=== PATIENT | male | born 1970 | race African-American/Black ===

== ENCOUNTER 2016-05-16 17:56 | Inpatient (IN) ==
[2016-05-16 19:13] LABS: Basophils # 0.1 K/mcL (0.0-0.2); Basophils % 0.5 %; Eosinophils # 0.3 K/mcL (0.0-0.6); Eosinophils % 2.4 %; Hematocrit 41.5 % (37.5-50.1); Hemoglobin 13.9 g/dL (12.9-16.9); Immature Granulocytes % 0.4 % (0-4); Lymphocytes # 3.6 K/mcL (0.6-4.6); Lymphocytes % 27.1 %; Mean Corpuscular HGB Conc 33.5 g/dL (31.6-35.5); Mean Corpuscular Hemoglobin 27.4 pg (28.0-33.3); Mean Corpuscular Volume 81.7 fL (83.0-100.0); Mean Platelet Volume 11.1 fL (9.4-12.4); Monocytes % 7.2 %; Neutrophils # 8.2 K/mcL (1.6-8.9); Platelet Count 175 K/mcL (140-400); Red Blood Count 5.08 M/mcL (4.19-5.50); Red Cell Distribution Width 13.5 % (11.5-14.5); Segmented Neutrophils % 62.4 %
[2016-05-16 19:20] LABS: Alanine Aminotransferase 11 Units/L (0-55); Albumin 3.9 g/dL (3.5-5.0); Albumin/Globulin Ratio 0.9 (1.1-2.2); Alkaline Phosphatase 97 Units/L (38-126); Amylase 159 Units/L (25-125); Aspartate Amino Transferase 14 Units/L (5-34); BUN/Creatinine Ratio 9 (6-26); Bilirubin,Direct 0.3 mg/dL (0.0-0.5); Bilirubin,Indirect 0.3 mg/dL (0.0-1.2); Bilirubin,Total 0.6 mg/dL (0.2-1.2); Blood Urea Nitrogen 8 mg/dL (8-26); Calcium 9.7 mg/dL (8.6-10.8); Carbon Dioxide 23 mEq/L (19-29); Chloride 101 mEq/L (98-109); Globulin 4.4 g/dL (2.4-3.5); Glucose 98 mg/dL (70-99); Lipase 929 Units/L (8-78); Osmolality,Calculated 280 (280-300); Potassium 4.1 mEq/L (3.5-4.5); Sodium 136 mEq/L (136-145); Total Protein 8.3 g/dL (6.0-8.3); eGFR For African Americans > 60 (> 60); eGFR For Non-African Americans > 60 (> 60)
[2016-05-16] MEDS ORDERED: Ondansetron 4 MG/2 ML VIAL IV ONE (19:28)
[2016-05-16] MEDS ORDERED: 0.9 % Sodium Chloride 1,000 ML IVC ONE ×3 (19:28→21:57)
[2016-05-16] MEDS ORDERED: *HR* HYDROmorphone (PF) 1 MG/ML SYRINGE IV ONE (19:28)
--- NOTE | 2016-05-16 19:40 | Emergency Department Note ---
Disposition Clinical Impression: Pancreatitis Qualifiers: Chronicity: acute Pancreatitis type: unspecified pancreatitis type Acute pancreatitis complication: no infection or necrosis Qualified Code(s): K85.90 - Acute pancreatitis without necrosis or infection, unspecified Disposition: Admitted As Inpatient Referrals: Anaid Giles CNP [Primary Care Provider] - Forms: ED Satisfaction Letter, Work/School Release Abdominal Pain HPI - General Chief Complaint: ED Abdominal Pain Stated Complaint: back pain no bm x4 days! Time Seen by Provider: 05/16/16 19:01 Source: patient Mode of arrival: ambulatory Nursing Notes Reviewed: Yes Vital Signs Reviewed: Yes - History of Present Illness Pt Subjective Complaint: abdominal pain Onset (ago): day(s) (4) Consistency: constant Location: epigastric Pain Severity: severe Pain Scale: 10 Quality: stabbing, burning Radiation: none Migration to: no migration Improves with: nothing Worsens with: nothing Associated symptoms: Reports: nausea, vomiting Treatments prior to arrival: none - Related Data Home Medications Medication Instructions Recorded Confirmed Atorvastatin [Lipitor] 10 mg PO DAILY 08/01/15 09/08/15 Lisinopril [Zestril] 10 mg PO DAILY 08/01/15 09/08/15 Omeprazole [PriLOSEC] 20 mg PO DAILY 08/01/15 09/08/15 Folic Acid 1 mg PO DAILY 05/16/16 05/16/16 Propranolol HCl 40 mg PO BID 05/16/16 05/16/16 TraZODone 50 mg PO HS PRN 05/16/16 05/16/16 Allergies Allergy/AdvReac Type Severity Reaction Status Date / Time No Known Allergies Allergy Verified 05/16/16 18:14 All systems ED: reviewed and negative except as stated. Constitutional: Denies: fever, chills Gastrointestinal: Reports: abdominal pain, nausea, vomiting Abdominal Pain PMH - Past Medical History Medical history: Reports: GERD, hyperlipidemia, hypertension, other Male Surgical History: Reports: orthopedic, other Psychiatric history: Reports: no psych history - Social History Smoking status: Current every day smoker Alcohol use: Reports: none Drug use: Reports: none, marijuana Physical Exam - General Limitations: no limitations General appearance: alert - Head Head exam: atraumatic, normocephalic, normal inspection - Eye Eye exam: Present: normal appearance, PERRL, EOMI - Expanded Eye Exam Pupils: Left: reactive - ENT ENT exam: normal exam, normal oropharynx, mucous membranes moist - Expanded ENT Exam External ear exam: Present: normal external inspection Mouth exam: Present: normal external inspection Teeth exam: Present: normal inspection Throat exam: Present: normal inspection - Neck Neck exam: Present: normal inspection, full ROM, trachea midline - Chest Chest inspection: Present: normal inspection, symmetric chest wall rise - Respiratory Respiratory exam: Present: normal lung sounds bilaterally - Cardiovascular Cardiovascular exam: Present: regular rate, normal rhythm, normal heart sounds - Abdominal Exam Abdominal exam: Present: soft, guarding, normal bowel sounds. Absent: rebound Abdominal tenderness: Present: epigastrium, moderate - Extremities Exam Extremities exam: Present: normal inspection, full ROM. Absent: tenderness, pedal edema - Expanded Upper Extremity Exam Shoulder exam: Present: normal inspection, full ROM Arm exam: Present: normal inspection, full ROM Elbow exam: Present: normal inspection, full ROM Forearm/Wrist exam: Present: normal inspection, full ROM Hand exam: Present: normal inspection, full ROM Vascular exam: Normal: capillary refill, radial pulse - Expanded Lower Extremity Exam Hip/Pelvis exam: Present: normal inspection, full ROM Upper leg exam: Present: normal inspection, full ROM Knee exam: Present: normal inspection, full ROM Lower leg exam: Present: normal inspection, full ROM Ankle exam: Present: normal inspection, full ROM Foot/toe exam: Present: normal inspection, full ROM Neurovascular/Tendon exam: Absent: motor deficit, sensory deficit, tendon deficit - Back Exam Back exam: Present: normal inspection, full ROM. Absent: tenderness - Neurological Exam Neurological exam: Present: alert, oriented X3 - Expanded Neurological Exam Patient oriented to: Present: person, place, time Coma Scale Eye Opening: Spontaneous Coma Scale Motor Response: Obeys Commands Coma Scale Verbal Response: Oriented Coma Scale Total: 15 - Psychiatric Psychiatric exam: Present: normal affect, normal mood - Skin Skin exam: Present: warm, dry, intact, normal color Course Vital Signs Temperature 98.1 F 05/16/16 18:10 Pulse Rate 98 05/16/16 18:10 Respiratory Rate 16 05/16/16 18:10 Blood Pressure 139/90 05/16/16 18:10 O2 Sat by Pulse Oximetry 98 05/16/16 18:10 Temperature 98.1 F 05/16/16 18:10 Pulse Rate 98 03/08/17 18:10 Respiratory Rate 16 05/16/16 18:10 Blood Pressure 139/90 05/16/16 18:10 O2 Sat by Pulse Oximetry 98 05/16/16 18:10 Oxygen Delivery Oxygen Delivery Room Air Abdominal Pain - Differential Diagnosis Differential Diagnosis: Likely: abdominal pain non-specific, acute appendicitis , constipation, colonic obstruction, pancreatitis - Medical Records Medical records reviewed: Yes I reviewed the patient's medical records. - Lab Data Lab results reviewed: Yes I reviewed the patient's lab results. Result diagrams: 05/16/16 18:56 05/16/16 18:56 Lab Results 05/16/16 05/16/16 Range/Units 18:56 18:56 WBC 13.2 H (4.3-11.1) K/mcL RBC 5.08 (4.19-5.50) M/mcL Hgb 13.9 (12.9-16.9) g/dL Hct 41.5 (37.5-50.1) % MCV 81.7 L (83.0-100.0) fL MCH 27.4 L (28.0-33.3) pg MCHC 33.5 (31.6-35.5) g/dL RDW 13.5 (11.5-14.5) % Plt Count 175 (140-400) K/mcL MPV 11.1 (9.4-12.4) fL Immature Gran % 0.4 (0-4) % Seg Neutrophils % 62.4 % Lymphocytes % 27.1 % Monocytes % 7.2 % Eosinophils % 2.4 % Basophils % 0.5 % Neutrophils # 8.2 (1.6-8.9) K/mcL Lymphocytes # 3.6 (0.6-4.6) K/mcL Monocytes # 1.0 (0.0-1.3) K/mcL Eosinophils # 0.3 (0.0-0.6) K/mcL Basophils # 0.1 (0.0-0.2) K/mcL Sodium 136 (136-145) mEq/L Potassium 4.1 (3.5-4.5) mEq/L Chloride 101 (98-109) mEq/L Carbon Dioxide 23 (19-29) mEq/L BUN 8 (8-26) mg/dL Creatinine 0.94 (0.72-1.25) mg/dL Est GFR ( Amer) > 60 (> 60) Est GFR (Non-Af Amer) > 60 (> 60) BUN/Creatinine Ratio 9 (6-26) Glucose 98 (70-99) mg/dL Calculated Osmolality 280 (280-300) Calcium 9.7 (8.6-10.8) mg/dL Total Bilirubin 0.6 (0.2-1.2) mg/dL Direct Bilirubin 0.3 (0.0-0.5) mg/dL Indirect Bilirubin 0.3 (0.0-1.2) mg/dL AST 14 (5-34) Units/L ALT 11 (0-55) Units/L Alkaline Phosphatase 97 (38-126) Units/L Serum Total Protein 8.3 (6.0-8.3) g/dL Albumin 3.9 (3.5-5.0) g/dL Globulin 4.4 H (2.4-3.5) g/dL Albumin/Globulin Ratio 0.9 L (1.1-2.2) Amylase 159 H (25-125) Units/L Lipase 929 H (8-78) Units/L - Radiology Data Radiology results reviewed: Yes I reviewed the patient's radiology results.
[2016-05-16] MEDS ORDERED: Ondansetron 4 MG/2 ML VIAL IVP PRN (20:32)
[2016-05-16] MEDS ORDERED: Naloxone 0.4 MG/ML INJ IVP PRN (20:32)
--- NOTE | 2016-05-16 20:44 | Internal Med History&Physical ---
<Trinh Pressley - Last Filed: 05/16/16 22:09> Date of Encounter: 05/16/16 Time of Encounter: 20:39 Assessment and Plan (1) Acute pancreatitis Current visit: Yes Status: Acute 1 patient has a past history of alcohol abuse he states his last drink was 12/06 he has been experiencing increased abdominal pain nausea vomiting early satiety since Saturday. Lipase was 929 will make patient nothing by mouth we will administer IV fluids 2 CT scan and to to reveal a multilocular complex cystic area in the pancreas measuring about 2 cm in size-possible pseudocyst formation. Will obtain MRCP- consult GI -consult ordered will need to be called 3 pain medication IV, antiemetics as needed Qualifiers: Pancreatitis type: unspecified pancreatitis type Acute pancreatitis complication: unspecified Qualified Code(s): K85.90 - Acute pancreatitis without necrosis or infection, unspecified (2) Hyperlipidemia Current visit: No Status: Acute 1 we will continue with statins will hold for now due to nothing by mouth Qualifiers: Hyperlipidemia type: unspecified Qualified Code(s): E78.5 - Hyperlipidemia , unspecified (3) Hypertension Current visit: No Status: Acute 1 presently controlled we will hold oral medications for now patient nothing by mouth and resume once patient is eating Qualifiers: Hypertension type: essential hypertension Qualified Code(s): I10 - Essential (primary) hypertension (4) DVT prophylaxis Current visit: No Status: Acute 1 [facility] Internal Medicine - H&P: HPI Chief complaint: abd pain N/V Admitted From: Emergency Dept Plans for Post Hospital Care: Home History of present illness: Mr. Vargas is a 45 year old male with past history of GERD hyperlipidemia hypertension alcoholic pancreatitis. He was seen at this facility in August 2015 for acute pancreatitis at that time it was noted that he had a multilocular complex cystic area and the head of the pancreas measuring roughly about 2 cm in size. He was given antibiotics IV fluids and improved discharged home. Patient has a past history of alcohol abuse he states his last drink was 12/07/2015. He has not experienced any more episodes of pancreatitis since August. According to the patient he had not had a bowel movement since Saturday and Saturday he began to experience abdominal pain she described as sharp rating crosses abdomen into his flanks the pain worsened as the day progressed. He took [id number] laxatives with no relief. Saturday he began to experience early satiety nausea and dry heaves. He has been unable to eat or drink he has not been passing any gas or having a bowel movement . The symptoms continued and he presented to the ER with the above complaints. According to ER notes patient's lab work did reveal white count 13.2 lipase of 929 he was given antiemetics IV Pain medications as well as IV fluids. He is admitted for further workup and evaluation. Presently the patient complains of sharp diffuse abdominal pain that radiates to his flanks however controlled with pain medication. He has tenderness upon palpation to right upper quadrant, No guarding. He is hemodynamically stable at this time. I reviewed this case with Dr. Marie who agrees with plan Past Med Surg Social Fam HX - Past Medical History Medical history: GERD, hyperlipidemia, hypertension, other Psychiatric history: no psych history - Social History Smoking Status: Current every day smoker Smokeless Tobacco Status: No Alcohol use: none Drug use: none, marijuana - Family History Mother Living Status: Still Living Father Living Status: Hx Family Cardiac Disorders: Yes Internal Medicine - H&P: Meds Atorvastatin [Lipitor] 10 mg PO HS 08/01/15 [History] Lisinopril [Zestril] 10 mg PO DAILY 08/01/15 [History] Omeprazole [PriLOSEC] 20 mg PO DAILY 08/01/15 [History] Folic Acid 1 mg PO DAILY 05/16/16 [History] Propranolol HCl 40 mg PO BID 05/16/16 [History] TraZODone 50 mg PO HS PRN 05/16/16 [History] Allergies No Known Allergies Allergy (Verified 05/16/16 18:14) All Systems PM: A 10-system review of systems was performed and is negative for pertinent findings except as documented above in the HPI. - Cardiovascular Cardiovascular ROS IM: no chest pain, no diaphoresis, no dyspnea, no lightheadedness, no palpitations, no syncope - Respiratory Respiratory: no cough, no dyspnea, no wheezing, no excessive phlegm production - Gastrointestinal Gastrointestinal: abdominal pain, constipation, early satiety, nausea, vomiting - Musculoskeletal Musculoskeletal ROS IM: no numbness, no tingling - Integumentary Integumentary IM: no rash, no unusual bruising - Neurological Neurological ROS: no confusion, no convulsions, no focal weakness, no numbness, no tingling, no tremor(s) - Constitutional Vitals: Temp Pulse Resp BP Pulse Ox 98.1 F 85 16 115/84 96 05/16/16 18:10 05/16/16 19:35 05/16/16 19:35 05/16/16 19:35 05/16/16 19:35 General appearance: Present: A&O X 3, answers questions appropriately - Head Head exam: Present: atraumatic, normocephalic - Eye Eye exam: Present: PERRL, conjuntiva pink, sclera anicteric Pupils: Present: PERRL - Neck Neck exam general surgery: Present: supple, trachea midline. Absent: lymphadenopathy - Respiratory Respiratory exam: Present: CTAB. Absent: accessory muscle use, rales, rhonchi, wheezes - Cardiovascular Cardiovascular exam: Present: RRR, +S1, +S2. Absent: diastolic murmur, gallop, rubs, systolic murmur - GI/Abdominal GI/Abdominal exam: Present: hypoactive bowel sounds, soft, tenderness, no peritoneal signs. Absent: distended - Extremities Exam Extremities exam: Present: warm, radial pulses palpable and symetrical. Absent : calf tenderness, cyanotic, pedal edema - Neurological Exam Neurological exam: Present: CN II-XII intact, oriented X3, no focal deficits. Absent: pronater drift, facial droop, speech deficit - Skin Skin exam: Present: dry, intact Internal Med - H&P Results - Labs CBC & Chem 7: 05/16/16 18:56 05/16/16 18:56 <Concetta Castillo R - Last Filed: 05/17/16 07:47> Internal Medicine - H&P: HPI History of present illness: Mr. Vargas is a 45 year old male All Systems PM: A 10-system review of systems was performed and is negative for pertinent findings except as documented above in the HPI. - Constitutional Vitals: Temp Pulse Resp BP Pulse Ox 97.6 F 81 16 129/75 97 05/17/16 07:34 05/17/16 07:34 05/17/16 07:34 05/17/16 07:34 05/17/16 07:34 Internal Med - H&P Results - Labs CBC & Chem 7: 05/17/16 04:37 05/17/16 04:37 Labs: Short CBC 05/17/16 Range/Units 04:37 WBC 10.6 (4.3-11.1) K/mcL Hgb 11.8 L D (12.9-16.9) g/dL Hct 36.2 L (37.5-50.1) % Plt Count 161 (140-400) K/mcL Neutrophils # 5.9 (1.6-8.9) K/mcL BMP 05/17/16 04:37 Sodium 136 Potassium 3.9 Chloride 104 Carbon Dioxide 22 BUN 12 Creatinine 0.88 Glucose 78 Calcium 8.6 Urine 05/17/16 Range/Units 04:04 Urine Color Yellow (Yellow) Urine Clarity Clear (Clear) Urine pH 6.0 (5.0-8.0) pH Units Ur Specific [place] 1.022 (1.010-1.025) Urine Protein Negative (Neg-Trace) mg/dL Urine Glucose (UA) Normal (Normal) mg/dL - Attending Attestation I evaluated the patient and my medical decision-making was reviewed with the PHLEBOTOMY SERVICES REPRESENTATIVE/ Advanced Practice Nurse. I agree with the documented findings, disposition and treatment plan as described except to the extent set forth below. 45 year old male with past history of GERD, hyperlipidemia, hypertension and alcoholic pancreatitis. He abstained from alcohol since November 2015. He presents with abdominal pain, reduced appetite for a few days. His lipase was 929 in the emergency department. He was started on IV fluids and admitted to hospitalist service. O/E: epigastric and flank tenderness present. Acute pancreatitis: Will treat with IV fluids. Check, lipid panel for hypertriglyceridemia and MRCP. GI consultation.
[2016-05-16] MEDS: *HR* Morphine 2 MG/ML SYRINGE IVP PRN (21:33)
[2016-05-17] MEDS ORDERED: Acetaminophen 325 MG TABLET PO PRN (01:01)
[2016-05-17] MEDS: Pantoprazole 40 MG VIAL IVP SCH (03:38)
[2016-05-17 04:44] LABS: Bilirubin,Urine Negative (Negative); Blood,Urine Negative (Negative); Clarity,Urine Clear (Clear); Color,Urine Yellow (Yellow); Glucose,Urine (UA) Normal (Normal); Ketones,Urine Trace mg/dL (Negative); Leukocyte Esterase,Urine Negative (Negative); Nitrite,Urine Negative (Negative); Protein,Urine Negative (Neg-Trace); Specific Gravity,Urine 1.022 (1.010-1.025); Urobilinogen,Urine Normal (Normal)
[2016-05-17 04:52] LABS: Basophils # 0.1 K/mcL (0.0-0.2); Basophils % 0.8 %; Eosinophils # 0.3 K/mcL (0.0-0.6); Hematocrit 36.2 % (37.5-50.1); Immature Granulocytes % 0.3 % (0-4); Lymphocytes # 3.6 K/mcL (0.6-4.6); Lymphocytes % 33.8 %; Mean Corpuscular HGB Conc 32.6 g/dL (31.6-35.5); Mean Corpuscular Hemoglobin 27.1 pg (28.0-33.3); Mean Platelet Volume 11.3 fL (9.4-12.4); Monocytes # 0.7 K/mcL (0.0-1.3); Monocytes % 6.9 %; Neutrophils # 5.9 K/mcL (1.6-8.9); Platelet Count 161 K/mcL (140-400); Red Blood Count 4.36 M/mcL (4.19-5.50); Red Cell Distribution Width 13.6 % (11.5-14.5); Segmented Neutrophils % 55.2 %
[2016-05-17 05:05] LABS: BUN/Creatinine Ratio 14 (6-26); Blood Urea Nitrogen 12 mg/dL (8-26); Calcium 8.6 mg/dL (8.6-10.8); Carbon Dioxide 22 mEq/L (19-29); Chloride 104 mEq/L (98-109); Glucose 78 mg/dL (70-99); Osmolality,Calculated 281 (280-300); Potassium 3.9 mEq/L (3.5-4.5); Sodium 136 mEq/L (136-145); eGFR For African Americans > 60 (> 60); eGFR For Non-African Americans > 60 (> 60)
[2016-05-17 05:18] LABS: Hemoglobin 11.8 g/dL (12.9-16.9)
[2016-05-17] MEDS: *HR* Enoxaparin 40 MG/0.4 ML SYRINGE SQ SCH (06:53)
[2016-05-17] MEDS ORDERED: Pantoprazole 40 MG VIAL IVP SCH (09:00)
[2016-05-17] MEDS: *HR* Morphine 2 MG/ML SYRINGE IVP PRN ×2 (09:23→20:10)
[2016-05-17 09:26] LABS: Alanine Aminotransferase 9 Units/L (0-55); Albumin/Globulin Ratio 0.9 (1.1-2.2); Alkaline Phosphatase 75 Units/L (38-126); Aspartate Amino Transferase 13 Units/L (5-34); Bilirubin,Direct 0.3 mg/dL (0.0-0.5); Bilirubin,Indirect 0.3 mg/dL (0.0-1.2); Bilirubin,Total 0.6 mg/dL (0.2-1.2); Globulin 3.3 g/dL (2.4-3.5); Lipase 461 Units/L (8-78)
[2016-05-17 09:29] LABS: Albumin 3.1 g/dL (3.5-5.0); Total Protein 6.4 g/dL (6.0-8.3)
[2016-05-17] MEDS ORDERED: *HR* HYDROcodone/Acet 5/325 mg TABLET PO PRN (11:07)
[2016-05-17] MEDS ORDERED: *HR* Heparin 5,000 UNIT/ML VIAL SQ SCH (11:15)
[2016-05-17] MEDS ORDERED: 0.9 % Sodium Chloride 1,000 ML ONE (11:16)
--- NOTE | 2016-05-17 11:17 | Gastroenterology Consult Note ---
<VelazquezCheng martinez Colin - Last Filed: 05/17/16 11:15> Date of Encounter: 05/17/16 Time of Encounter: 10:55 - Assessment and plan (1) Pancreatitis Current Visit: Yes Status: Acute Assessment and plan: Restart IVF at 200 ml/hr. Continue antiemetics and pain control. Keep NPO for now. Lipase 929 on admission, 461 today. LFTs WNL. MRCP completed, results pending. Unable to calculate BISAP score as chest x-ray still pending to rule out pleural effusion. Check IgG4, ionized calcium, MENDEL, and triglycerides. Patient does have history of alcohol abuse but states he stopped drinking 6 months ago. Qualifiers: Chronicity: acute Pancreatitis type: unspecified pancreatitis type Acute pancreatitis complication: no infection or necrosis Qualified Code(s): K85.90 - Acute pancreatitis without necrosis or infection, unspecified - Time Spent With Patient Total time spent is greater than 50% in coordination of care (as documented) at patient's floor/unit and/or counseling patient: GI History of Present Illness - Data of Consult Patient: new to practice Consult date: 05/17/16 Requesting Physician: Zelalem Schumacher - Consult Narrative Reason for consult: Pancreatitis History of present illness: Mr. Vargas is a 45 year old male with PMHx of GERD, HLD, HTN, alcohol abuse, and alcoholic pancreatitis presented to the ED with abdominal pain. He was admitted in August 2015 with acute pancreatitis and CT A/P on 09/08/2015 showed a multilobular complex cystic area in the head of the pancreas measuring roughly about 2 cm in size, likely represent pseudocyst formation. He has a history of alcohol abuse and states his last drink was 12/07/2015. His last BM was Saturday or Saturday, he then began to experience sharp abdominal pain that worsened throughout the day. Laxatives provided no relief. Saturday he started having early satiety, nausea, and vomiting. He states he has not been able to eat, and has not been passing gas or having BM. On admission, WBC 13.2, lipase 929, and LFTs were WNL. Procedures: None NSAIDs: None Anticoagulation: None Past Med Surg Social Fam HX - Past Medical History Medical history: GERD, hyperlipidemia, hypertension, other Psychiatric history: no psych history - Social History Smoking Status: Current every day smoker Smokeless Tobacco Status: No Alcohol use: none Drug use: none, marijuana - Family History Mother Living Status: Still Living Hx Family Cardiac Disorders: (Hypertension) Hx Family GI Disorders: (Diverticulitis) Father Living Status: Hx Family Cardiac Disorders: Yes - Gastrointestinal Gastrointestinal: Present: as per HPI - Constitutional Constitutional: as per HPI - EENT Eyes: as per HPI Ears: Present: as per HPI Nose, mouth and throat: Present: as per HPI - Cardiovascular Cardiovascular ROS: Present: as per HPI - Respiratory Respiratory IM: Present: as per HPI - Genitourinary Genitourinary: Absent: change in color, Urinary frequency - Neurological ROS Neurological GI: Present: as per HPI - Hematologic/Lymphatic Hematologic/Lymphatic pediatric: Present: as per HPI - Musculoskeletal Musculoskeletal ROS GI: Present: as per HPI - Integumentary Integumentary GI: Present: as per HPI - Psychiatric ROS Psychiatric GI: Present: as per HPI - Endocrine Endocrine IM: Present: as per HPI - Constitutional Vitals: Temp Pulse Resp BP Pulse Ox 97.6 F 81 16 129/75 97 05/17/16 07:34 05/17/16 07:34 05/17/16 07:34 05/17/16 07:34 05/17/16 07:34 General appearance: Present: cooperative, A&O X 3, no acute distress, answers questions appropriately - Head Head exam: Present: atraumatic, normocephalic - Eye Eye exam: Present: normal appearance, sclera anicteric - ENT ENT exam: Present: mucous membranes dry - Neck Neck exam general surgery: Present: normal inspection, trachea midline - Respiratory Respiratory exam: Present: CTAB. Absent: rales, respiratory distress, rhonchi - Cardiovascular Cardiovascular exam: Present: RRR, +S1, +S2 - GI/Abdominal GI/Abdominal exam: Present: soft, tenderness (upper abdomen), no peritoneal signs. Absent: distended, firm, guarding - Rectal Rectal exam: Present: deferred - Extremities Exam Extremities exam: Present: warm - Neurological Exam Neurological exam: Present: no focal deficits - Psychiatric Psychiatric exam: Present: normal affect, normal mood - Skin Skin exam: Present: dry, intact, normal color, warm Results - Labs CBC & Chem 7: 05/17/16 04:37 05/17/16 04:37 Labs: Last Result Calcium 8.6 mg/dL (8.6-10.8) 05/17/16 04:37 Entire Visit Hgb 11.8 g/dL (12.9-16.9) L D 05/17/16 04:37 Hct 36.2 % (37.5-50.1) L 05/17/16 04:37 Total Bilirubin 0.6 mg/dL (0.2-1.2) 05/17/16 04:37 AST 13 Units/L (5-34) 05/17/16 04:37 ALT 9 Units/L (0-55) 05/17/16 04:37 Amylase 159 Units/L (25-125) H 05/16/16 18:56 Lipase 461 Units/L (8-78) H 05/17/16 04:37 - Impressions Impressions Abdomen MRI 05/17/16 08:30 IMPRESSION: 1. No acute upper abdominal abnormality identified. 2. Interval decrease in size of the cystic lesion in the pancreatic head. Only a single cyst remains, measuring 5 mm. 3. No pancreatic ductal dilatation. Focal area of severe stenosis is identified in the distal [place] the measuring 7 mm in length. No underlying discrete mass. Finding is presumably related to sequelae of pancreatitis. 4. Distended gallbladder. No intra or extrahepatic biliary dilatation. No choledocholithiasis. 5. Trace free fluid in the left upper quadrant. D/ / Latasha Cowart MD / Latasha Cowart MD Interpreting Provider: Latasha Cowart MD Chest X-Ray 05/17/16 08:49 IMPRESSION: No acute cardiopulmonary process. No pleural effusion. D/ / 05/17/2016 10:25:25 Brenda Larkin MD / [place] Interpreting Provider: Brenda Larkin MD Consult Discharge Plan - Plan Referrals: Anel Ronquillo, FLIGHT TOWER DISPATCHER [Advanced Practice Nurse] - 05/29/16 1:00 pm (Please bring the new patient packet you get in the mail. You also need to bring your insurance card, photo ID and any medications you are currently on. If you need to cancel please do so with a 24 hour cancellation notice. Thank you.) <William Noble - Last Filed: 05/17/16 21:31> Time of Encounter: 17:30 - Time Spent With Patient Total time spent is greater than 50% in coordination of care (as documented) at patient's floor/unit and/or counseling patient: GI History of Present Illness - Data of Consult Requesting Physician: Zelalem Schumacher - Consult Narrative History of present illness: Mr. Vargas is a 45 year old male - Constitutional Vitals: Temp Pulse Resp BP Pulse Ox 98.0 F 87 14 122/62 97 05/17/16 19:31 05/17/16 19:31 05/17/16 19:31 05/17/16 19:31 05/17/16 19:31 Results - Labs CBC & Chem 7: 05/17/16 04:37 05/17/16 04:37 Labs: Last Result Calcium 8.6 mg/dL (8.6-10.8) 05/17/16 04:37 Triglycerides 107 mg/dL (< 150) 05/17/16 13:14 Entire Visit Hgb 11.8 g/dL (12.9-16.9) L D 05/17/16 04:37 Hct 36.2 % (37.5-50.1) L 05/17/16 04:37 Total Bilirubin 0.6 mg/dL (0.2-1.2) 05/17/16 04:37 AST 13 Units/L (5-34) 05/17/16 04:37 ALT 9 Units/L (0-55) 05/17/16 04:37 Amylase 159 Units/L (25-125) H 05/16/16 18:56 Lipase 461 Units/L (8-78) H 05/17/16 04:37 - Impressions Impressions Abdomen MRI 05/17/16 08:30 IMPRESSION: 1. No acute upper abdominal abnormality identified. 2. Interval decrease in size of the cystic lesion in the pancreatic head. Only a single cyst remains, measuring 5 mm. 3. No pancreatic ductal dilatation. Focal area of severe stenosis is identified in the distal Raman measuring 7 mm in length. No underlying discrete mass. Finding is presumably related to sequelae of pancreatitis. 4. Distended gallbladder. No intra or extrahepatic biliary dilatation. No choledocholithiasis. 5. Trace free fluid in the left upper quadrant. D/ / 05/17/2016 11:26:44 Latasha Cowart MD / Neisha Skaggs Interpreting Provider: Latasha Cowart MD Chest X-Ray 05/17/16 08:49 IMPRESSION: No acute cardiopulmonary process. No pleural effusion. D/ / 05/17/2016 10:25:25 Brenda Larkin MD / [place] Interpreting Provider: Brenda Larkin MD - Attending Attestation I examined this patient and my medical decision-making was reviewed with the COUNTY ASSESSOR/PA/Advanced Practice Nurse/Resident Physician. I agree with the documented findings, disposition and treatment plan as described except to the extent set forth below.
[2016-05-17] MEDS: 0.9 % Sodium Chloride 1,000 ML IVC SCH ×3 (11:18→21:42)
[2016-05-17] MEDS ORDERED: traZODone 50 MG TABLET PO PRN (12:16)
[2016-05-17] MEDS: Folic Acid 1 MG TABLET PO SCH (13:10)
--- NOTE | 2016-05-17 14:48 | Internal Med Progress Note ---
Date of Encounter: 05/17/16 Time of Encounter: 14:48 - Assessment and plan (1) Acute pancreatitis Current Visit: Yes Status: Acute Assessment and plan: clinically better. this is a recurrent episode,had one episode last yr, most likely 2/2 alcohol abuse reports that he has quit drinking since last 6 months MRI shows decrease in the size of the pancreatic cyst, no choledochlithiasis Gi on board, conservative mx for now, will slowly advance diet as tolerated. Qualifiers: Pancreatitis type: unspecified pancreatitis type Acute pancreatitis complication: unspecified Qualified Code(s): K85.90 - Acute pancreatitis without necrosis or infection, unspecified (2) Hyperlipidemia Current Visit: No Status: Acute Assessment and plan: Continue home medications. Qualifiers: Hyperlipidemia type: unspecified Qualified Code(s): E78.5 - Hyperlipidemia , unspecified (3) Hypertension Current Visit: No Status: Acute Assessment and plan: Blood pressure is stable or Will continue home medications. Qualifiers: Hypertension type: essential hypertension Qualified Code(s): I10 - Essential (primary) hypertension (4) ETOH abuse Current Visit: No Status: Chronic Assessment and plan: Patient has quit drinking since last 6 months. - Time Spent With Patient 25 - 35 minutes - Subjective Interval history: Patient seen at the bedside, admitted for recurrent pancreatitis. Reports mild abdominal pain. Says it has improved than yesterday. Denies any nausea or vomiting. Complaints of headache today. MRA done, shows decreasing size of the pancreatic cyst, also showed distended GB with no choledocholithiasis and no intra-or extrahepatic biliary dilatation. - Constitutional Vitals: Temp Pulse Resp BP Pulse Ox 97.5 F L 67 16 116/69 100 05/17/16 14:41 05/17/16 14:41 05/17/16 14:41 05/17/16 14:41 05/17/16 14:41 General appearance: Present: A&O X 3, answers questions appropriately Exam: - Head Head exam: Present: atraumatic, normocephalic - Eye Eye exam: Present: PERRL, conjuntiva pink, sclera anicteric Pupils: Present: PERRL - Neck Neck exam general surgery: Present: supple, trachea midline. Absent: lymphadenopathy - Respiratory Respiratory exam: Present: CTAB. Absent: accessory muscle use, rales, rhonchi, wheezes - Cardiovascular Cardiovascular exam: Present: RRR, +S1, +S2. Absent: diastolic murmur, gallop, rubs, systolic murmur - GI/Abdominal GI/Abdominal exam: Present: hypoactive bowel sounds, soft, tenderness, no peritoneal signs. Absent: distended - Extremities Exam Extremities exam: Present: warm, radial pulses palpable and symetrical. Absent : calf tenderness, cyanotic, pedal edema - Neurological Exam Neurological exam: Present: CN II-XII intact, oriented X3, no focal deficits. Absent: pronater drift, facial droop, speech deficit - Skin Skin exam: Present: dry, intact Internal Medicine: Result - Labs CBC & Chem 7: 05/17/16 04:37 05/17/16 04:37 Labs: Short CBC 05/17/16 Range/Units 04:37 WBC 10.6 (4.3-11.1) K/mcL Hgb 11.8 L D (12.9-16.9) g/dL Hct 36.2 L (37.5-50.1) % Plt Count 161 (140-400) K/mcL Neutrophils # 5.9 (1.6-8.9) K/mcL BMP 05/17/16 04:37 Sodium 136 Potassium 3.9 Chloride 104 Carbon Dioxide 22 BUN 12 Creatinine 0.88 Glucose 78 Calcium 8.6 Liver Function 05/17/16 Range/Units 04:37 Total Bilirubin 0.6 (0.2-1.2) mg/dL Direct Bilirubin 0.3 (0.0-0.5) mg/dL AST 13 (5-34) Units/L ALT 9 (0-55) Units/L Alkaline Phosphatase 75 (38-126) Units/L Albumin 3.1 L D (3.5-5.0) g/dL Urine 05/17/16 Range/Units 04:04 Urine Color Yellow (Yellow) Urine Clarity Clear (Clear) Urine pH 6.0 (5.0-8.0) pH Units Ur Specific Chalmers 1.022 (1.010-1.025) Urine Protein Negative (Neg-Trace) mg/dL Urine Glucose (UA) Normal (Normal) mg/dL - Impressions Impressions Abdomen MRI 05/17/16 08:30 IMPRESSION: 1. No acute upper abdominal abnormality identified. 2. Interval decrease in size of the cystic lesion in the pancreatic head. Only a single cyst remains, measuring 5 mm. 3. No pancreatic ductal dilatation. Focal area of severe stenosis is identified in the distal Raman measuring 7 mm in length. No underlying discrete mass. Finding is presumably related to sequelae of pancreatitis. 4. Distended gallbladder. No intra or extrahepatic biliary dilatation. No choledocholithiasis. 5. Trace free fluid in the left upper quadrant. D/ / 05/17/2016 11:26:44 Latasha Cowart MD / Neisha Skaggs Interpreting Provider: Latasha oCwart MD Chest X-Ray 05/17/16 08:49 IMPRESSION: No acute cardiopulmonary process. No pleural effusion. D/ / 05/17/2016 10:25:25 Brenda Larkin MD / [place] Interpreting Provider: Brenda Larkin MD Consult Discharge Plan - Plan Referrals: Anaid Giles, JENNIFER [Primary Care Provider] -
[2016-05-17] MEDS ORDERED: Ketorolac 15 MG/ML VIAL IVP ONE (14:49)
[2016-05-18] MEDS: *HR* Morphine 2 MG/ML SYRINGE IVP PRN (01:10)
[2016-05-18] MEDS: 0.9 % Sodium Chloride 1,000 ML IVC SCH ×2 (02:47→08:09)
[2016-05-18] MEDS: *HR* Enoxaparin 40 MG/0.4 ML SYRINGE SQ SCH (05:05)
[2016-05-18] MEDS: Pantoprazole 40 MG VIAL IVP SCH (08:10)
[2016-05-18] MEDS: Folic Acid 1 MG TABLET PO SCH (08:10)
[2016-05-18 10:10] LABS: Basophils # 0.1 K/mcL (0.0-0.2); Basophils % 0.7 %; Eosinophils # 0.3 K/mcL (0.0-0.6); Eosinophils % 2.9 %; Hematocrit 36.8 % (37.5-50.1); Hemoglobin 11.8 g/dL (12.9-16.9); Immature Granulocytes % 0.4 % (0-4); Lymphocytes # 2.6 K/mcL (0.6-4.6); Lymphocytes % 24.8 %; Mean Corpuscular HGB Conc 32.1 g/dL (31.6-35.5); Mean Corpuscular Hemoglobin 27.1 pg (28.0-33.3); Mean Corpuscular Volume 84.4 fL (83.0-100.0); Monocytes # 0.5 K/mcL (0.0-1.3); Monocytes % 4.5 %; Neutrophils # 7.1 K/mcL (1.6-8.9); Platelet Count 168 K/mcL (140-400); Red Blood Count 4.36 M/mcL (4.19-5.50); Red Cell Distribution Width 13.8 % (11.5-14.5); Segmented Neutrophils % 66.7 %
[2016-05-18 10:21] LABS: BUN/Creatinine Ratio 10 (6-26); Blood Urea Nitrogen 8 mg/dL (8-26); Calcium 8.1 mg/dL (8.6-10.8); Carbon Dioxide 20 mEq/L (19-29); Chloride 109 mEq/L (98-109); Glucose 157 mg/dL (70-99); Osmolality,Calculated 288 (280-300); Potassium 3.8 mEq/L (3.5-4.5); Sodium 138 mEq/L (136-145); eGFR For African Americans > 60 (> 60); eGFR For Non-African Americans > 60 (> 60)
[2016-05-18] MEDS ORDERED: Sennosides 8.6 MG TABLET PO SCH (11:00)
[2016-05-18 11:03] VITALS: BP 133/83
--- NOTE | 2016-05-18 14:00 | Discharge Summary ---
Date of Encounter: 05/18/16 Time of Encounter: 13:59 - Discharge Diagnosis (1) Acute pancreatitis Priority: Primary Status: Acute Qualifiers: Pancreatitis type: unspecified pancreatitis type Acute pancreatitis complication: unspecified Qualified Code(s): K85.90 - Acute pancreatitis without necrosis or infection, unspecified (2) Hyperlipidemia Priority: Secondary Status: Acute Qualifiers: Hyperlipidemia type: unspecified Qualified Code(s): E78.5 - Hyperlipidemia , unspecified (3) Hypertension Priority: Secondary Status: Acute Qualifiers: Hypertension type: essential hypertension Qualified Code(s): I10 - Essential (primary) hypertension (4) ETOH abuse Priority: Secondary Status: Chronic - Discharge Medications Prescriptions: HYDROcodone/Acet 5/325 mg [[place] 5-325 mg] 1 tab PO Q6H PRN #30 tab PRN Reason: Pain Home Medications: Atorvastatin [Lipitor] 10 mg PO HS 08/01/15 [History] Lisinopril [Zestril] 10 mg PO DAILY 08/01/15 [History] Omeprazole [PriLOSEC] 20 mg PO DAILY 08/01/15 [History] Folic Acid 1 mg PO DAILY 05/16/16 [History] Propranolol HCl 40 mg PO BID 05/16/16 [History] TraZODone 50 mg PO HS PRN 05/16/16 [History] HYDROcodone/Acet 5/325 mg [[place] 5-325 mg] 1 tab PO Q6H PRN #30 tab 05/18/16 [Rx ] Allergies/Adverse Reactions: Allergies No Known Allergies Allergy (Verified 05/16/16 18:14) Procedures/tests Complete & Pending: Procedures Performed prior 72 hours Category Date Time Status MR abdomen wo con [MR] Stat MRI 05/17/16 08:30 Completed Date of admission: 05/16/16 21:52 Primary care physician: Anaid Giles Consults: 05/16/16 21:59 Consult to Gastroenterology [CONS] Routine Consulting Provider: Marlyn Smith Reason for Consult: pacreatitis Time Notified: 22:06 Call Completed: No Discharging clinician: Zelalem Schumacher Anticipated date of discharge: 05/18/16 - Patient Status Disposition: Home, Self-Care Condition: Fair Functional capacity at discharge: independent ambulation Overall status at discharge: patient is back to baseline - Discharge Instructions Instructions: Pancreatitis (DC), Chronic Hypertension (DC) Follow Up With: Anel Ronquillo, [employer] [Advanced Practice Nurse] - 05/29/16 1:00 pm (Please bring the new patient packet you get in the mail. You also need to bring your insurance card, photo ID and any medications you are currently on. If you need to cancel please do so with a 24 hour cancellation notice. Thank you.) - Diet and Activity Activity: resume usual activities as tolerated Diet: advance to your usual diet Interval History: Mr. Vargas is a 45 year old male with PMHx of GERD, HLD, HTN, alcohol abuse, and alcoholic pancreatitis presented to the ED with abdominal pain. He was admitted in August 2015 with acute pancreatitis and CT A/P on 09/08/2015 showed a multilobular complex cystic area in the head of the pancreas measuring roughly about 2 cm in size, likely represent pseudocyst formation. He has a history of alcohol abuse and states his last drink was 12/07/2015. His last BM was Saturday or Saturday, he then began to experience sharp abdominal pain that worsened throughout the day. Laxatives provided no relief. Saturday he started having early satiety, nausea, and vomiting. He states he has not been able to eat, and has not been passing gas or having BM. On admission, WBC 13.2, lipase 929, and LFTs were WNL. He was admitted for further evaluation with acute pancreatitis. MRI of the abdomen was done that showed decreasing pseudocyst of the pancreas. No pancreatic ductal dilatation, it showed sequelae of pancreatitis. Distended gallbladder but no intra-or extrahepatic biliary dilatation and no choledocholithiasis. Patient was seen by GI and recommended conservative management. Patient was treated with IV fluids, remained nothing by mouth, diet was slowly advanced as tolerated. He improved clinically, abdominal pain has subsided, able to tolerate soft diet. He is being discharged today in stable condition. Hospital course: Mr. Vargas is a 45 year old male Time spent discussing smoking cessation with patient: more than 10 minutes - Time Spent with Patient Total time spent providing and/or coordinating discharge services: Greater than 30 minutes - Constitutional Vitals: Temp Pulse Resp BP Pulse Ox 98.4 F 57 16 133/83 98 05/18/16 11:01 05/18/16 11:01 05/18/16 11:01 05/18/16 11:01 05/18/16 11:01 General appearance: Present: A&O X 3, answers questions appropriately Exam: - Head Head exam: Present: atraumatic, normocephalic - Eye Eye exam: Present: PERRL, conjuntiva pink, sclera anicteric Pupils: Present: PERRL - Neck Neck exam general surgery: Present: supple, trachea midline. Absent: lymphadenopathy - Respiratory Respiratory exam: Present: CTAB. Absent: accessory muscle use, rales, rhonchi, wheezes - Cardiovascular Cardiovascular exam: Present: RRR, +S1, +S2. Absent: diastolic murmur, gallop, rubs, systolic murmur - GI/Abdominal GI/Abdominal exam: Present: Soft, nontender, no peritoneal signs. Absent: distended - Extremities Exam Extremities exam: Present: warm, radial pulses palpable and symetrical. Absent : calf tenderness, cyanotic, pedal edema - Neurological Exam Neurological exam: Present: CN II-XII intact, oriented X3, no focal deficits. Absent: pronater drift, facial droop, speech deficit - Skin Skin exam: Present: dry, intact
[2016-05-19 22:03] LABS: ANA IgG by ELISA NONE DETECTED (None Detected)
== END 2016-05-18 15:33 | disposition home or self-care (01) | DRG 282 ==
LOC: EMEROO 17:56 → 3ANU 17:56 → SUATTDRO 21:52
PROVIDERS: ADMIT Nurse Practitioner Family; ATTEND Internal Medicine Endocrinology, Diabetes & Metabolism

== ENCOUNTER 2017-03-14 07:51 | Inpatient (IN) ==
[2017-03-14] MEDS ORDERED: Ondansetron 4 MG/2 ML VIAL IVP ONE ×2 (07:59→08:55)
[2017-03-14] MEDS ORDERED: *HR* HYDROmorphone (PF) 1 MG/ML SYRINGE IVP ONE ×2 (07:59→08:55)
[2017-03-14] MEDS ORDERED: 0.9 % Sodium Chloride 1,000 ML IVC ONE (07:59)
--- NOTE | 2017-03-14 08:01 | Emergency Department Note ---
Disposition Clinical Impression: Acute on chronic pancreatitis Disposition: Admitted As Inpatient Condition: Fair General Adult HPI - General Chief complaint: ED Abdominal Pain Stated complaint: CARMEN, abd pain Time Seen by Provider: 03/14/17 07:55 Source: patient Limitations: no limitations - History of Present Illness Pain Scale: 10 - Related Data Home Medications Medication Instructions Recorded Confirmed Lisinopril [Zestril] 10 mg PO DAILY 08/01/15 03/14/17 Folic Acid 1 mg PO DAILY 05/16/16 03/14/17 Propranolol HCl 40 mg PO DAILY 05/16/16 03/14/17 Atorvastatin Calcium [Lipitor] 20 mg PO HS 03/14/17 03/14/17 Gabapentin [Neurontin] 100 mg PO TID 03/14/17 03/14/17 Omeprazole [PriLOSEC] 40 mg PO DAILY 03/14/17 03/14/17 Allergies Allergy/AdvReac Type Severity Reaction Status Date / Time No Known Allergies Allergy Verified 05/16/16 18:14 Past Medical History - Past Medical History Medical history: Reports: GERD, hyperlipidemia, hypertension Psychiatric history: Reports: no psych history - Social History Smoking Status: Current every day smoker Smokeless Tobacco Status: No Alcohol use: Reports: none Drug use: Reports: none Physical Exam - General Limitations: no limitations General appearance: alert, in no apparent distress Course Vital Signs Temperature 98.3 F 03/14/17 07:52 Pulse Rate 55 03/14/17 07:52 Respiratory Rate 20 03/14/17 07:52 Blood Pressure 189/96 03/14/17 07:52 O2 Sat by Pulse Oximetry 100 03/14/17 07:52 Temperature 98.3 F 03/15/17 10:52 Pulse Rate 74 03/15/17 10:52 Respiratory Rate 16 03/15/17 10:52 Blood Pressure 148/61 03/15/17 10:52 O2 Sat by Pulse Oximetry 99 03/15/17 10:52 Oxygen Delivery Oxygen Delivery Room Air Medical Decision Making - Lab Data Result diagrams: 03/15/17 05:53 03/15/17 05:53 Lab Results 03/14/17 03/14/17 03/14/17 Range/Units 08:15 08:15 08:15 WBC 12.4 H (4.3-11.1) K/mcL RBC 4.55 (4.19-5.50) M/mcL Hgb 12.8 L (12.9-16.9) g/dL Hct 38.8 (37.5-50.1) % MCV 85.3 (83.0-100.0) fL MCH 28.1 (28.0-33.3) pg MCHC 33.0 (31.6-35.5) g/dL RDW 14.9 H (11.5-14.5) % Plt Count 196 (140-400) K/mcL MPV 11.2 (9.4-12.4) fL Immature Gran % 0.4 (0-4) % Seg Neutrophils % 69.9 % Lymphocytes % 21.5 % Monocytes % 5.3 % Eosinophils % 2.1 % Basophils % 0.8 % Neutrophils # 8.7 (1.6-8.9) K/mcL Lymphocytes # 2.7 (0.6-4.6) K/mcL Monocytes # 0.7 (0.0-1.3) K/mcL Eosinophils # 0.3 (0.0-0.6) K/mcL Basophils # 0.1 (0.0-0.2) K/mcL Sodium 141 (136-145) mEq/L Potassium 3.9 (3.5-5.1) mEq/L Chloride 107 (98-107) mEq/L Carbon Dioxide 27 (23-29) mEq/L BUN 6 (6-20) mg/dL Creatinine 1.12 (0.70-1.30) mg/dL Est GFR ( Amer) > 60 (> 60) Est GFR (Non-Af Amer) > 60 (> 60) BUN/Creatinine Ratio 5 L (6-26) Glucose 105 (70-105) mg/dL Calculated Osmolality 290 (280-300) Calcium 9.0 (8.6-10.3) mg/dL Total Bilirubin 0.4 (0.3-1.0) mg/dL Direct Bilirubin 0.1 (0.0-0.2) mg/dL Indirect Bilirubin 0.3 (0.0-1.2) mg/dL AST 13 (13-39) Units/L ALT 7 (7-52) Units/L Alkaline Phosphatase 80 (34-104) Units/L Troponin I < 0.03 (< 0.04) ng/mL Serum Total Protein 7.0 (6.4-8.9) g/dL Albumin 4.2 (3.5-5.7) g/dL Globulin 2.8 (2.4-3.5) g/dL Albumin/Globulin Ratio 1.5 (1.1-2.2) Lipase 665 H (11-82) Units/L Attestation Statement - Attestation Attestation: I examined this patient and my medical decision-making was reviewed with the Resident Physician. I agree with the documented findings, disposition and treatment plan as described except to the extent set forth below. [id number] time provided Patient arrives complaining of abdominal pain. Known history of pancreatitis secondary to alcohol abuse. The patient recently had an abdominal MRI dated the transcribed results of which were reviewed by me with resident physician Dr. Gallagher. Patient appears uncomfortable on exam
[2017-03-14] MEDS ORDERED: *HR* HYDROmorphone (PF) 1 MG/ML SYRINGE ONE (08:14)
[2017-03-14 08:36] LABS: Basophils # 0.1 K/mcL (0.0-0.2); Basophils % 0.8 %; Eosinophils # 0.3 K/mcL (0.0-0.6); Eosinophils % 2.1 %; Hematocrit 38.8 % (37.5-50.1); Hemoglobin 12.8 g/dL (12.9-16.9); Immature Granulocytes % 0.4 % (0-4); Lymphocytes # 2.7 K/mcL (0.6-4.6); Lymphocytes % 21.5 %; Mean Corpuscular Hemoglobin 28.1 pg (28.0-33.3); Mean Corpuscular Volume 85.3 fL (83.0-100.0); Mean Platelet Volume 11.2 fL (9.4-12.4); Monocytes # 0.7 K/mcL (0.0-1.3); Monocytes % 5.3 %; Neutrophils # 8.7 K/mcL (1.6-8.9); Platelet Count 196 K/mcL (140-400); Red Blood Count 4.55 M/mcL (4.19-5.50); Red Cell Distribution Width 14.9 % (11.5-14.5); Segmented Neutrophils % 69.9 %
--- NOTE | 2017-03-14 08:58 | Emergency Department Note ---
Disposition Clinical Impression: Acute on chronic pancreatitis Disposition: Admitted As Inpatient Condition: Fair Referrals: Anel Ronquillo, [employer] [Primary Care Provider] - Forms: ED Satisfaction Letter, Work/School Release Time of Disposition: 12:00 Abdominal Pain HPI - General Chief Complaint: ED Abdominal Pain Stated Complaint: CARMEN, abd pain Time Seen by Provider: 03/14/17 07:55 Source: patient Mode of arrival: ambulatory Limitations: no limitations Nursing Notes Reviewed: Yes Vital Signs Reviewed: Yes - History of Present Illness HPI Narrative: 46-year-old male hx of HTN, HLD, with history of pancreatitis and alcoholism presents complaining of epigastric pain and shortness of breath. 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 Patient states this is very similar to his chronic pancreatitis, this pain has been worsening for last few days. Pt Subjective Complaint: abdominal pain Onset (ago): day(s) Location: epigastric Pain Severity: moderate Pain Scale: 10 Quality: aching Migration to: no migration Improves with: nothing Worsens with: nothing Associated symptoms: Reports: denies other symptoms, nausea, vomiting. Denies: diarrhea, fever, dysuria, hematemesis, hematochezia, melena, hematuria - Related Data Home Medications Medication Instructions Recorded Confirmed Atorvastatin [Lipitor] 10 mg PO HS 08/01/15 05/16/16 Lisinopril [Zestril] 10 mg PO DAILY 08/01/15 05/16/16 Omeprazole [PriLOSEC] 20 mg PO DAILY 08/01/15 05/16/16 Folic Acid 1 mg PO DAILY 05/16/16 05/16/16 Propranolol HCl 40 mg PO BID 05/16/16 05/16/16 traZODone [TraZODone] 50 mg PO HS PRN 05/16/16 05/16/16 Previous Rx's Medication Instructions Recorded HYDROcodone/Acet 5/325 mg [[place] 1 tab PO Q6H PRN #30 tab 05/18/16 5-325 mg] Allergies Allergy/AdvReac Type Severity Reaction Status Date / Time No Known Allergies Allergy Verified 05/16/16 18:14 All systems ED: reviewed and negative except as stated. Constitutional: Reports: fever, chills Eyes: Denies: eye pain, eye discharge ENT ED: Denies: ear pain, throat pain Cardiovascular: Reports: as per HPI, chest pain Respiratory: Reports: dyspnea Gastrointestinal: Reports: abdominal pain, nausea, vomiting. Denies: diarrhea, hematemesis, melena, hematochezia Genitourinary: Denies: urgency, dysuria Musculoskeletal: Denies: back pain Integumentary: Denies: rash Abdominal Pain PMH - Past Medical History Medical history: Reports: GERD, hyperlipidemia, hypertension Male Surgical History: Reports: non-contributory Psychiatric history: Reports: no psych history - Social History Smoking status: Current every day smoker Alcohol use: Reports: none Drug use: Reports: none Physical Exam Constitutional: Very anxious male appears mildly uncomfortable, sinus rhythm no acute distress HEENT: NCAT, sclera anicteric Neck: normal inspection, neck is supple, trachea midline Resp: normal chest inspection, CTA bilaterally, no resp distress CV: RRR, no m/g/r GI: normal inspection, Soft, moderate tenderness to palpation in the epigastrium and diffusely, with no guarding or rigidity no hepatosplenomegaly, BS x 4 quadrants, negative Porras's Sign, no tenderness at McBurney' point, Negative Rovsing's Back: normal inspection, negative CVA bilaterally, no tenderness to palpation Neuro: A&O3, no gross motor or sensory deficits bilaterally MSK: normal inspection, bilateral UE and LE with normal ROM Skin: No rashes, skin warm, dry, intact - General Limitations: no limitations General appearance: alert, in no apparent distress Course Course Narrative: 46-year-old with a history of pancreatitis and recent imaging, will repeat hepatic panel lipase basic lab work CBC BMP suspect pancreatic issues and necrotic inflammation, as is a recent MRI with a gastrology will not give imaging at this time trying fluids and analgesics antiemetics. - Reevaluation(s) Reevaluation #1: After 3 rounds of Dilaudid 1 mg and 8 mg of morphine, patient still having pain and states it is the worst pain he has had, will admit for pancreatitis acute on chronic, lipases 600, Dr. Severino accept in the patient for inpatient admission Time: 12:01 Vital Signs Temperature 98.3 F 03/14/17 07:52 Pulse Rate 55 03/14/17 07:52 Respiratory Rate 20 03/14/17 07:52 Blood Pressure 189/96 03/14/17 07:52 O2 Sat by Pulse Oximetry 100 03/14/17 07:52 Temperature 98.3 F 03/14/17 07:52 Pulse Rate 70 03/14/17 11:07 Respiratory Rate 14 03/14/17 11:07 Blood Pressure 176/108 03/14/17 11:07 O2 Sat by Pulse Oximetry 95 03/14/17 11:07 Oxygen Delivery Oxygen Delivery Room Air Abdominal Pain - Differential Diagnosis Differential Diagnosis: Likely: abdominal pain non-specific, acute appendicitis - Medical Records Medical records reviewed: Yes I reviewed the patient's medical records. - Lab Data Lab results reviewed: Yes I reviewed the patient's lab results. Result diagrams: 03/14/17 08:15 03/14/17 08:15 Lab Results 03/14/17 03/14/17 03/14/17 Range/Units 08:15 08:15 08:15 WBC 12.4 H (4.3-11.1) K/mcL RBC 4.55 (4.19-5.50) M/mcL Hgb 12.8 L (12.9-16.9) g/dL Hct 38.8 (37.5-50.1) % MCV 85.3 (83.0-100.0) fL MCH 28.1 (28.0-33.3) pg MCHC 33.0 (31.6-35.5) g/dL RDW 14.9 H (11.5-14.5) % Plt Count 196 (140-400) K/mcL MPV 11.2 (9.4-12.4) fL Immature Gran % 0.4 (0-4) % Seg Neutrophils % 69.9 % Lymphocytes % 21.5 % Monocytes % 5.3 % Eosinophils % 2.1 % Basophils % 0.8 % Neutrophils # 8.7 (1.6-8.9) K/mcL Lymphocytes # 2.7 (0.6-4.6) K/mcL Monocytes # 0.7 (0.0-1.3) K/mcL Eosinophils # 0.3 (0.0-0.6) K/mcL Basophils # 0.1 (0.0-0.2) K/mcL Sodium 141 (136-145) mEq/L Potassium 3.9 (3.5-5.1) mEq/L Chloride 107 (98-107) mEq/L Carbon Dioxide 27 (23-29) mEq/L BUN 6 (6-20) mg/dL Creatinine 1.12 (0.70-1.30) mg/dL Est GFR ( Amer) > 60 (> 60) Est GFR (Non-Af Amer) > 60 (> 60) BUN/Creatinine Ratio 5 L (6-26) Glucose 105 (70-105) mg/dL Calculated Osmolality 290 (280-300) Calcium 9.0 (8.6-10.3) mg/dL Total Bilirubin 0.4 (0.3-1.0) mg/dL Direct Bilirubin 0.1 (0.0-0.2) mg/dL Indirect Bilirubin 0.3 (0.0-1.2) mg/dL AST 13 (13-39) Units/L ALT 7 (7-52) Units/L Alkaline Phosphatase 80 (34-104) Units/L Troponin I < 0.03 (< 0.04) ng/mL Serum Total Protein 7.0 (6.4-8.9) g/dL Albumin 4.2 (3.5-5.7) g/dL Globulin 2.8 (2.4-3.5) g/dL Albumin/Globulin Ratio 1.5 (1.1-2.2) Lipase 665 H (11-82) Units/L - Radiology Data Radiology results reviewed: Yes I reviewed the patient's radiology results. MRI from February shows pancreatitis - EKG Data EKG attestation: Yes I reviewed and interpreted this EKG. EKG shows normal: sinus rhythm Rate: normal Rhythm: NSR Pelican/QRS: normal
[2017-03-14] MEDS ORDERED: *HR* Morphine 2 MG/ML SYRINGE IVP ONE (09:49)
[2017-03-14 10:58] LABS: Alanine Aminotransferase 7 Units/L (7-52); Albumin 4.2 g/dL (3.5-5.7); Albumin/Globulin Ratio 1.5 (1.1-2.2); Alkaline Phosphatase 80 Units/L (34-104); Aspartate Amino Transferase 13 Units/L (13-39); Bilirubin,Direct 0.1 mg/dL (0.0-0.2); Bilirubin,Indirect 0.3 mg/dL (0.0-1.2); Bilirubin,Total 0.4 mg/dL (0.3-1.0); Blood Urea Nitrogen 6 mg/dL (6-20); Carbon Dioxide 27 mEq/L (23-29); Chloride 107 mEq/L (98-107); Globulin 2.8 g/dL (2.4-3.5); Glucose 105 mg/dL (70-105); Osmolality,Calculated 290 (280-300); Potassium 3.9 mEq/L (3.5-5.1); Sodium 141 mEq/L (136-145)
[2017-03-14 11:28] LABS: BUN/Creatinine Ratio 5 (6-26); Lipase 665 Units/L (11-82); eGFR For African Americans > 60 (> 60); eGFR For Non-African Americans > 60 (> 60)
[2017-03-14] MEDS ORDERED: *HR* Promethazine 25 MG/ML VIAL IVP PRN (13:08)
[2017-03-14] MEDS ORDERED: Naloxone 0.4 MG/ML INJ IVP PRN (13:08)
[2017-03-14] MEDS ORDERED: *HR* LORazepam 2 MG/ML VIAL IVP PRN (13:12)
--- NOTE | 2017-03-14 13:23 | Internal Med History&Physical ---
Date of Encounter: 03/14/17 Time of Encounter: 12:05 Assessment and Plan (1) Pancreatitis Current visit: No Status: Acute 1. Will keep npo. 2. IVF hydration. 3. Pain control and nauseas control with IV Dilaudid and Zofran. 4. Culture blood and start Meropenem given elevated WBC and known cyst. I reviewed MRI from 02/28/[address] Noble. He will see in consult and determine if we need to re-image again. 5. Will trend WBC, amylase, lipase and follow clinically. 6. Will check lipid profile in morning. Qualifiers: Chronicity: acute Pancreatitis type: alcohol induced Acute pancreatitis complication: no infection or necrosis Qualified Code(s): K85.20 - Alcohol induced acute pancreatitis without necrosis or infection (2) Hyperlipidemia Current visit: No Status: Chronic 1. Check lipid profile. 2. Hold STATIN now while npo; resume when able to eat/drink. Qualifiers: Hyperlipidemia type: unspecified Qualified Code(s): E78.5 - Hyperlipidemia , unspecified (3) Alcohol abuse Current visit: No Status: Chronic 1. Patient states he's been alcohol free for one year except for one drink the night before last. 2. Will place on CIWA protocol and start MVI, Thiamine, Folate with IVF. 3. Will star Protonix IV for GI prophylaxis. (4) DVT prophylaxis Current visit: No Status: Acute 1. Heparin SQ. Internal Medicine - H&P: HPI Chief complaint: abdominal pain; N/V Admitted From: Emergency Dept Plans for Post Hospital Care: Home History of present illness: Mr. Vargas is a 46 year old male who presents to the ER with acute onset of epigastric abdominal pain, protracted nausea, and protracted vomiting since yesterday. He admits to having some subjective fevers and chills but no night sweats. He denies any diarrhea. He denies any GI blood loss. He feels as though he has pancreatitis again. He first had pancreatitis about a year and half ago secondary to excessive alcohol intake. He has since then quit drinking alcohol and has had no alcohol for the past year. The only exception is he had one drink the night before last ([employer] Lemonade). His pancreatitis symptoms started shortly thereafter prompting him to come in this morning. Workup in the ER revealed findings consistent with pancreatitis. He was then admitted to the hospitalist service. Upon my assessment of the patient in the ER, patient appears acutely ill but nontoxic. He looks dehydrated. He is in some moderate epigastric abdominal pain. Patient did have an MRI of his pancreas roughly 2 weeks ago confirming mild pancreatitis as well as a stable pseudocyst roughly 1.3 cm in size. He follows with Dr. Noble for his pancreatitis. He denies any peptic ulcer disease or any known gallstones. I questioned him about his alcohol intake again, and he confirmed to me that he has been alcohol free for the past year except for one drink the night before last as noted above. He denies any tobacco or illicit drug use. Past Med Surg Social Fam HX - Past Medical History Attestation: Yes The following information was validated with the patient. Source: patient, old records reviewed Medical history: GERD, hyperlipidemia, hypertension Psychiatric history: no psych history - Past Surgical History Surgical History: no surgical history - Social History Smoking Status: Current every day smoker Smokeless Tobacco Status: No Alcohol use: none Drug use: none Current living situation: Home, With Family Activity Level: Independent ambulation Recent Out of Country Travel Within the Last 8 Weeks: No - Family History Mother Living Status: Still Living Hx Family Cardiac Disorders: (Hypertension) Hx Family GI Disorders: (Diverticulitis) Father Living Status: Hx Family Cardiac Disorders: Yes Internal Medicine - H&P: Meds Lisinopril [Zestril] 10 mg PO DAILY 08/01/15 [History] Folic Acid 1 mg PO DAILY 05/16/16 [History] Propranolol HCl 40 mg PO DAILY 05/16/16 [History] Atorvastatin Calcium [Lipitor] 20 mg PO HS 03/14/17 [History] Gabapentin [Neurontin] 100 mg PO TID 03/14/17 [History] Omeprazole [PriLOSEC] 40 mg PO DAILY 03/14/17 [History] 3 Allergy/AdvReac Type Severity Reaction Status Date / Time No Known Allergies Allergy Verified 05/16/16 18:14 - Constitutional Constitutional: chills, fever(s), no night sweats - EENT Eyes: no blurry vision, no change in vision Ears: no ear pain, no tinnitus Nose, mouth and throat: no nasal congestion, no sinus pressure, no sore throat - Cardiovascular Cardiovascular ROS IM: no chest pain, no dyspnea, no dyspnea on exertion - Respiratory Respiratory: no cough, no dyspnea, no hemoptysis, no dyspnea on exertion, no chest congestion - Gastrointestinal Gastrointestinal: abdominal pain, nausea, vomiting, no diarrhea, no hematemesis , no hematochezia, no melena - Genitourinary Genitourinary ROS male: no dysuria, no flank pain, no hematuria - Musculoskeletal Musculoskeletal ROS IM: no atrophy, no back pain, no joint swelling - Integumentary Integumentary IM: no rash, no jaundice - Neurological Neurological ROS: no dizziness, no focal weakness, no frequent falls, no headache(s) - Psychiatric Psychiatric: no anxiety, no depression - Endocrine Endocrine IM: no polydipsia, no polyuria - Hematologic/Lymphatic Hematologic/Lymphatic: no easy bruising, no lymphadenopathy - Allergic/Immunologic Allergic/Immunologic: GI upset with certain foods (all foods now), no wheezing - Constitutional Vitals: Temp Pulse Resp BP Pulse Ox 98.3 F 75 14 172/97 100 03/14/17 07:52 03/14/17 12:22 03/14/17 12:22 03/14/17 12:22 03/14/17 12:22 General appearance: Present: cooperative, mild distress (due to abdominal pain) , A&O X 3, pleasant, answers questions appropriately - Head Head exam: Present: atraumatic - Eye Eye exam: Present: EOMI, normal appearance, PERRL. Absent: scleral icterus Pupils: Present: normal accommodation - ENT ENT exam: Present: mucous membranes dry, normal exam, normal oropharynx - Neck Neck exam general surgery: Present: full ROM, supple. Absent: tenderness, nuchal rigidity - Respiratory Respiratory exam: Present: CTAB. Absent: chest wall tenderness, rales, respiratory distress, rhonchi, wheezes - Cardiovascular Cardiovascular exam: Present: RRR, +S1, +S2. Absent: diastolic murmur, systolic murmur - GI/Abdominal GI/Abdominal exam: Present: guarding, hypoactive bowel sounds, soft, tenderness (epigastric --> RUQ), no peritoneal signs. Absent: hepatomegaly, rebound, splenomegaly - Extremities Exam Extremities exam: Present: full ROM, normal capillary refill, warm, radial pulses palpable and symmetrical. Absent: calf tenderness, joint swelling, tenderness - Back Exam Back exam: Present: normal inspection. Absent: CVA tenderness (L), CVA tenderness (R) - Neurological Exam Neurological exam: Present: alert, CN II-XII intact, oriented X3, no focal deficits, strengths equal and symetr throughout - Psychiatric Psychiatric exam: Present: normal affect, normal mood - Skin Skin exam: Present: dry, warm. Absent: rash Internal Med - H&P Results - Labs CBC & Chem 7: 03/14/17 08:15 03/14/17 08:15
[2017-03-14] MEDS: 0.9 % Sodium Chloride 1,000 ML IVC SCH (13:36)
[2017-03-14 13:38] LABS: Bilirubin,Urine Negative (Negative); Blood,Urine Negative (Negative); Clarity,Urine Clear (Clear); Color,Urine Yellow (Yellow); Glucose,Urine (UA) Normal (Normal); Ketones,Urine 40 mg/dL (Negative); Leukocyte Esterase,Urine Negative (Negative); Nitrite,Urine Negative (Negative); PH,Urine 7.5 pH Units (5.0-8.0); Protein,Urine 30 mg/dL (Neg-Trace); Specific Gravity,Urine 1.018 (1.010-1.025); Urobilinogen,Urine Normal (Normal)
[2017-03-14] MEDS: *HR* HYDROmorphone (PF) 1 MG/ML SYRINGE IVP PRN ×3 (13:38→20:46)
[2017-03-14 13:49] LABS: Hyaline Casts,Urine None Seen per lpf (None-Few); RBC,Urine 0-3 per hpf (0-3)
[2017-03-14 14:10] LABS: Bacteria,Urine Moderate per hpf (None-Few); Squamous Epithelial Cell,Urine Few per lpf (None-Few)
[2017-03-14] MEDS: Meropenem 1,000 MG in Water for inj. (sterile) 20 ML 10 ML IVP SCH (15:56)
[2017-03-14] MEDS: 0.9 % Sodium Chloride w KCl 20 MEQ/1,000 ML MLS IVC SCH (15:56)
[2017-03-14] MEDS: Gabapentin 100 MG CAPSULE PO SCH ×2 (16:00→20:51)
[2017-03-14] MEDS: *HR* Heparin 5,000 UNIT/ML VIAL SQ SCH (16:22)
[2017-03-14] MEDS: Thiamine (B-1) 100 MG, Folic Acid 1 MG, MVI, adult with vitamin K 10 ML in 0.9 % Sodi... IVPB SCH (16:22)
[2017-03-14] MEDS: Pantoprazole 40 MG VIAL IVP SCH (16:22)
[2017-03-15] MEDS: *HR* HYDROmorphone (PF) 1 MG/ML SYRINGE IVP PRN ×7 (00:18→23:57)
[2017-03-15] MEDS: Meropenem 1,000 MG in Water for inj. (sterile) 20 ML 10 ML IVP SCH ×3 (00:18→15:01)
[2017-03-15] MEDS: 0.9 % Sodium Chloride w KCl 20 MEQ/1,000 ML MLS IVC SCH (00:19)
[2017-03-15] MEDS: Pantoprazole 40 MG VIAL IVP SCH ×2 (05:16→17:02)
[2017-03-15] MEDS: *HR* Heparin 5,000 UNIT/ML VIAL SQ SCH ×2 (05:17→17:02)
[2017-03-15 06:47] LABS: Basophils # 0.1 K/mcL (0.0-0.2); Basophils % 0.7 %; Eosinophils # 0.3 K/mcL (0.0-0.6); Eosinophils % 2.2 %; Hematocrit 36.2 % (37.5-50.1); Hemoglobin 11.4 g/dL (12.9-16.9); Immature Granulocytes % 0.6 % (0-4); Lymphocytes % 20.1 %; Mean Corpuscular HGB Conc 31.5 g/dL (31.6-35.5); Mean Corpuscular Hemoglobin 27.6 pg (28.0-33.3); Mean Corpuscular Volume 87.7 fL (83.0-100.0); Mean Platelet Volume 12.4 fL (9.4-12.4); Monocytes % 6.4 %; Neutrophils # 10.5 K/mcL (1.6-8.9); Platelet Count 179 K/mcL (140-400); Red Blood Count 4.13 M/mcL (4.19-5.50); Red Cell Distribution Width 15.3 % (11.5-14.5)
[2017-03-15 06:48] LABS: INR 1.1
[2017-03-15 06:56] LABS: Activated Partial Thrombo Time 30.2 Seconds (26.0-36.0)
--- NOTE | 2017-03-15 08:53 | Internal Med Progress Note ---
<Roque Pedroza - Last Filed: 03/15/17 11:32> Date of Encounter: 03/15/17 Time of Encounter: 08:51 - Assessment and plan (1) Acute on chronic pancreatitis Current Visit: Yes Status: Acute Assessment and plan: Lipase 665 -> 1054 Triglycerides 138 WBC 12.4-> 15.0 Epigastric abdominal pain radiating to his back Multiple admissions within the last 2 years for EtOH induced pancreatitis Patient states his last drink was 1 year ago but recently caught him drinking MRI 02/28/17 showing pancreatitis and pseudocyst within head of pancreas measuring 1.3cm unchanged from previous CT. Plan: NPO except ice chips Protonix IV 40 q12hrs Zofran and phenergan on board IVF Meropenem with increasing leukocytosis Blood Cx pending Pain control - Morphine and Dilaudid GI consulted for possible re-imaging of pancreas Trending labs (2) Pseudocyst of pancreas Current Visit: Yes Status: Chronic Assessment and plan: Previously seen on MRI on 02.28.17. Stable from previous CT image. 1.3cm located in head of pancreas Consulting GI for possible re-imaging (3) Abdominal pain Current Visit: Yes Status: Acute Assessment and plan: See above Qualifiers: Abdominal location: epigastric Qualified Code(s): R10.13 - Epigastric pain (4) Leukocytosis Current Visit: Yes Status: Acute Assessment and plan: WBC 12.4 -> 15.0 Continue Meropenem Will continue to follow Qualifiers: Leukocytosis type: unspecified Qualified Code(s): D72.829 - Elevated white blood cell count, unspecified (5) Alcohol abuse Current Visit: No Status: Chronic Assessment and plan: Patient reports being sober for one year now, though states she caught him drinking recently Patient was in rehab for drinking within the last year - Continue [facility] protocol - MVI - Thiamine - Folate - IVF - Counseled and encouraged cessation with h/o admissions for pancreatitis from EtOH abuse (6) Hypertension Current Visit: No Status: Chronic Assessment and plan: Holding home Zestril for now. BP stable. Qualifiers: Hypertension type: essential hypertension Qualified Code(s): I10 - Essential (primary) hypertension (7) Hyperlipidemia Current Visit: No Status: Chronic Assessment and plan: Lipid panel: - Tri 138, TC 100, LDL 49 and HDL 23 Holding statin therapy while NPO for now Qualifiers: Hyperlipidemia type: unspecified Qualified Code(s): E78.5 - Hyperlipidemia , unspecified (8) DVT prophylaxis Current Visit: No Status: Acute Assessment and plan: Heparin 5000 units q12 hrs - Subjective Interval history: Admitted for pancreatitis, h/o of EtOH abuse, last drink over one year ago Patient is laying in bed this morning complaining of mild pain control Pain radiating to his back C/o poor appetite and unknown amount of recent weight loss No nausea or vomiting Denies any CP, SOB, palpiations or GI issues - Constitutional Vitals: Temp Pulse Resp BP Pulse Ox 97.8 F 70 16 141/68 98 03/15/17 06:40 03/15/17 06:40 03/15/17 06:40 03/15/17 06:40 03/15/17 06:40 General appearance: Present: cooperative, mild distress (due to abdominal pain) , A&O X 3, pleasant, answers questions appropriately - Head Head exam: Present: atraumatic, normocephalic - Eye Eye exam: Present: EOMI, normal appearance, conjuntiva pink, sclera anicteric - ENT ENT exam: Present: mucous membranes dry - Neck Neck exam general surgery: Present: supple, trachea midline - Respiratory Respiratory exam: Present: CTAB. Absent: respiratory distress - Cardiovascular Cardiovascular exam: Present: RRR, +S1, +S2 - GI/Abdominal GI/Abdominal exam: Present: guarding, normal bowel sounds, tenderness (diffuse) . Absent: distended, rebound - Extremities Exam Extremities exam: Present: warm. Absent: pedal edema, tenderness - Neurological Exam Neurological exam: Present: alert, oriented X3, no focal deficits - Psychiatric Psychiatric exam: Present: normal affect, normal mood - Skin Skin exam: Present: dry, warm. Absent: diaphoretic Internal Medicine: Result - Labs CBC & Chem 7: 03/15/17 05:53 03/15/17 05:53 Labs: Short CBC 03/15/17 Range/Units 05:53 WBC 15.0 H (4.3-11.1) K/mcL Hgb 11.4 L (12.9-16.9) g/dL Hct 36.2 L (37.5-50.1) % Plt Count 179 (140-400) K/mcL Neutrophils # 10.5 H (1.6-8.9) K/mcL Urine 03/14/17 Range/Units 13:20 Urine Color Yellow (Yellow) Urine Clarity Clear (Clear) Urine pH 7.5 (5.0-8.0) pH Units Ur Specific [place] 1.018 (1.010-1.025) Urine Protein 30 H (Neg-Trace) mg/dL Urine Glucose (UA) Normal (Normal) mg/dL - ABG Interpretation ABG results: PT/INR, D-dimer PT 12.0 Seconds (9.4-12.1) 03/15/17 05:53 Consult Discharge Plan - Plan Referrals: Anel Ronquillo, CLEANING ASSOCIATE [Primary Care Provider] - <Jasbir Colmenares - Last Filed: 03/15/17 19:02> Date of Encounter: 03/15/17 - Assessment and plan (1) Acute pancreatitis Current Visit: No Status: Acute Qualifiers: Pancreatitis type: alcohol induced Acute pancreatitis complication: no infection or necrosis Qualified Code(s): K85.20 - Alcohol induced acute pancreatitis without necrosis or infection (2) Pseudocyst of pancreas Current Visit: Yes Status: Chronic (3) Alcohol abuse Current Visit: No Status: Chronic (4) Tobacco abuse Current Visit: No Status: Chronic - Constitutional Vitals: Temp Pulse Resp BP Pulse Ox 98.0 F 81 16 148/78 98 03/15/17 14:01 03/15/17 14:01 03/15/17 14:01 03/15/17 14:01 03/15/17 14:01 Internal Medicine: Result - Labs CBC & Chem 7: 03/15/17 05:53 03/15/17 05:53 Labs: Short CBC 03/15/17 Range/Units 05:53 WBC 15.0 H (4.3-11.1) K/mcL Hgb 11.4 L (12.9-16.9) g/dL Hct 36.2 L (37.5-50.1) % Plt Count 179 (140-400) K/mcL Neutrophils # 10.5 H (1.6-8.9) K/mcL BMP 03/15/17 05:53 Sodium 140 Potassium 3.8 Chloride 109 H Carbon Dioxide 21 L BUN 5 L Creatinine 0.74 Glucose 70 Calcium 8.4 L Liver Function 03/15/17 Range/Units 05:53 Total Bilirubin 0.6 (0.3-1.0) mg/dL AST 11 L (13-39) Units/L ALT 5 L (7-52) Units/L Alkaline Phosphatase 68 (34-104) Units/L Albumin 3.4 L (3.5-5.7) g/dL - ABG Interpretation ABG results: PT/INR, D-dimer PT 12.0 Seconds (9.4-12.1) 03/15/17 05:53 - Attending Attestation I examined this patient and my medical decision-making was reviewed with the Resident Physician on 03/15/17. I agree with the documented findings, disposition and treatment plan as described except to the extent set forth below. Mr Vargas is currently admitted for acute pancreatitis. He remains moderate to high risk due to potential for worsening clinical status. Mr. Vargas is still having a lot of pain. He is NPO. No fever or chills. No cough. Exam Alert. Mod distress Mucus membranes dry Heart reg with murmur Lungs diminished Abd with epigastric tenderness. I/P 1. Acute pancreatitis 2. ETOH abuse Further diagnoses and plan as above.
[2017-03-15 09:07] LABS: Alanine Aminotransferase 5 Units/L (7-52); Albumin 3.4 g/dL (3.5-5.7); Albumin/Globulin Ratio 1.4 (1.1-2.2); Alkaline Phosphatase 68 Units/L (34-104); Amylase 238 Units/L (29-103); Aspartate Amino Transferase 11 Units/L (13-39); BUN/Creatinine Ratio 7 (6-26); Bilirubin,Total 0.6 mg/dL (0.3-1.0); Blood Urea Nitrogen 5 mg/dL (6-20); Calcium 8.4 mg/dL (8.6-10.3); Carbon Dioxide 21 mEq/L (23-29); Chloride 109 mEq/L (98-107); Chol/HDL Ratio 4.3 (0-4.9); Cholesterol 100 mg/dL (< 200); Globulin 2.5 g/dL (2.4-3.5); Glucose 70 mg/dL (70-105); HDL Cholesterol 23 mg/dL (40-59); LDL Cholesterol,Calculated 49 mg/dL (0-99); Lipase 1054 Units/L (11-82); Magnesium 1.6 mg/dL (1.6-2.6); Osmolality,Calculated 286 (280-300); Potassium 3.8 mEq/L (3.5-5.1); Sodium 140 mEq/L (136-145); Total Protein 5.9 g/dL (6.4-8.9); Triglycerides 138 mg/dL (< 150); eGFR For African Americans > 60 (> 60); eGFR For Non-African Americans > 60 (> 60)
[2017-03-15] MEDS: Gabapentin 100 MG CAPSULE PO SCH ×3 (09:15→20:36)
[2017-03-15] MEDS: 0.9 % Sodium Chloride 1,000 ML IVC SCH ×3 (09:15→17:01)
--- NOTE | 2017-03-15 11:20 | Gastroenterology Consult Note ---
<Kasandra Cardenas - Last Filed: 03/15/17 11:17> Date of Encounter: 03/15/17 Time of Encounter: 10:15 - Assessment and plan (1) Pancreatitis Status: Acute Assessment and plan: Most likely due to alcoholism. MENDEL and IGG4 were negative 05/25. Continue NPO and IVF. Advised to abstain from alcohol. Possible EUS as outpatient. Qualifiers: Chronicity: acute Pancreatitis type: alcohol induced Acute pancreatitis complication: no infection or necrosis Qualified Code(s): K85.20 - Alcohol induced acute pancreatitis without necrosis or infection (2) Pancreatic cyst Status: Acute Assessment and plan: MRI showed Pancreatic cyst is unchanged and again noted is the short segment of stenosis within the distal body of the pancreas measuring approximately 7 mm in length. Pt may need EUS as outpatient, has an appointment with Dr Noble 03/27/17. - Time Spent With Patient Total time spent is greater than 50% in coordination of care (as documented) at patient's floor/unit and/or counseling patient: GI History of Present Illness - Data of Consult Patient: known to practice within the last 3 years Consult date: 03/15/17 Requesting Physician: Jasbir Colmenares DO - Consult Narrative Reason for consult: pancreatitis History of present illness: Mr. Vargas is a 46 year old male with a pmhx of GERD, hyperlipidemia, hypertension, pancreatitis and alcohol abuse. He presents to the ER with complains of epigastric abdominal pain, protracted nausea, and protracted vomiting since yesterday. He has a history of a pancreatic cyst for which he has seen Dr Noble. He had MRI 02/28/17 which showed unchanged cyst and was consistent with pancreatitis. Pt was advised to go to ER for abdominal pain and nausea or vomiting. He states pain would come and go so he did not go to the ER until yesterday. He reports fever and chills, nausea and vomiting with anything he ate, poor appetitie and weight loss of approximately 10 pounds. He denies any diarrhea, constipation, bloody or tarry stools. He has a history of pancreatitis approximately 1 year ago. He states he has had no alcohol for the past year except for one drink the night before presentation. His however indicates that the patient has not stopped drinking. He denies any tobacco or illicit drug use. Labs show a WBC count of 15, hemoglobin 11.4, INR 1.1, AST 11 , ALT 5, amylase 238, lipase 1054, total bilirubin 0.6, triglycerides 138. He was hospitalized 317 for pancreatitis IgG4 and MENDEL screen were both negative at that time. Procedures: None NSAIDs: None Anticoagulation: None Past Med Surg Social Fam HX - Past Medical History Medical history: GERD, hyperlipidemia, hypertension Psychiatric history: no psych history - Past Surgical History Surgical History: no surgical history - Social History Smoking Status: Current every day smoker Smokeless Tobacco Status: No Alcohol use: none Drug use: none - Family History Mother Living Status: Still Living Hx Family Cardiac Disorders: (Hypertension) Hx Family GI Disorders: (Diverticulitis) Father Living Status: Hx Family Cardiac Disorders: Yes Review of Systems: GI: as per CACHIL DEHE GENERAL: fever, and chills EYES: denies yellow discoloration ENT: denies pain with swallowing or difficulty swallowing CARDIO: denies chest pain, palpitations RESP: No Shortness of breath with exertion : denies change in color of urine NEURO: weakness HEME: Denies any bruising MS: chronic joint pain, and back pain. DERM: denies rash or itching PSYCH: history of anxiety and depression - Constitutional Vitals: Temp Pulse Resp BP Pulse Ox 98.3 F 74 16 148/61 99 03/15/17 10:52 03/15/17 10:52 03/15/17 10:52 03/15/17 10:52 03/15/17 10:52 Exam: CONSTITUTIONAL:~alert, no acute distress.~HEAD:~normocephalic.~EYES:~no jaundice.~NECK:~no obvious swelling.~HEART:~regular rate and rhythm, no murmurs. ~LUNGS:~bilateral fair air entry.~ABDOMEN:~non distended, soft, tender right upper and lower quadrants, no masses palpable, no organomegaly.~RECTAL EXAM:~ Deferred.~EXTREMITIES:~no clubbing, cyanosis or edema.~SKIN:~no stigmata of chronic liver disease.~NEUROLOGIC:~no obvious focal defect.~~~~ Results - Labs CBC & Chem 7: 03/15/17 05:53 03/15/17 05:53 Labs: Last Result Calcium 8.4 mg/dL (8.6-10.3) L 03/15/17 05:53 Troponin I < 0.03 ng/mL (< 0.04) 03/14/17 08:15 Triglycerides 138 mg/dL (< 150) 03/15/17 05:53 Entire Visit Hgb 11.4 g/dL (12.9-16.9) L 03/15/17 05:53 Hct 36.2 % (37.5-50.1) L 03/15/17 05:53 PT 12.0 Seconds (9.4-12.1) 03/15/17 05:53 Total Bilirubin 0.6 mg/dL (0.3-1.0) 03/15/17 05:53 AST 11 Units/L (13-39) L 03/15/17 05:53 ALT 5 Units/L (7-52) L 03/15/17 05:53 Amylase 238 Units/L (29-103) H 03/15/17 05:53 Lipase 1054 Units/L (11-82) H 03/15/17 05:53 - ABG ABG results: PT/INR, D-dimer PT 12.0 Seconds (9.4-12.1) 03/15/17 05:53 Consult Discharge Plan - Plan Instructions: Pancreatitis (DC) Additional Instructions: Continue to take all medications as prescribed Followup with PCP within 7 days Keep follow-up with Dr. Noble on 03/27/17 May use [place] 7.5 every 6 hours for the next 5 days, do not drive or consume alcohol while taking this medication. Advance your diet as tolerated but eat low fat diet Please call your PCP or return to the office/ED if you start experiencing fevers , chills, consistent nausea or vomiting, worsening abdominal pain, chest pain or palpitations. Referrals: Anel Ronquillo, DIRECTOR OF GUIDANCE [Primary Care Provider] - Prescriptions: HYDROcodone/Acet 7.5/325 mg [[place] 7.5-325 mg] 1 tab PO Q6HR PRN 5 Days #20 tablet PRN Reason: Pain Ondansetron HCl 4 mg PO Q8H 5 Days #15 tablet <Lamin Nation - Last Filed: 03/27/17 13:22> Date of Encounter: 03/27/17 - Time Spent With Patient Total time spent is greater than 50% in coordination of care (as documented) at patient's floor/unit and/or counseling patient: GI History of Present Illness - Data of Consult Requesting Physician: Jasbir Colmenares DO - Consult Narrative History of present illness: Mr. Vargas is a 46 year old male - Constitutional Vitals: Temp Pulse Resp BP Pulse Ox 98.1 F 69 17 154/88 98 03/18/17 03:47 03/18/17 03:47 03/18/17 03:47 03/18/17 03:47 03/18/17 03:47 Results - Labs CBC & Chem 7: 03/17/17 06:41 03/17/17 06:41 Labs: Last Result Calcium 8.3 mg/dL (8.6-10.3) L 03/17/17 06:41 Troponin I < 0.03 ng/mL (< 0.04) 03/14/17 08:15 Triglycerides 138 mg/dL (< 150) 03/15/17 05:53 Entire Visit Hgb 10.7 g/dL (12.9-16.9) L 03/17/17 06:41 Hct 33.3 % (37.5-50.1) L 03/17/17 06:41 PT 12.0 Seconds (9.4-12.1) 03/15/17 05:53 Total Bilirubin 0.4 mg/dL (0.3-1.0) 03/17/17 06:41 AST 14 Units/L (13-39) 03/17/17 06:41 ALT 5 Units/L (7-52) L 03/17/17 06:41 Amylase 238 Units/L (29-103) H 03/15/17 05:53 Lipase 331 Units/L (11-82) H 03/17/17 06:41 - ABG ABG results: PT/INR, D-dimer PT 12.0 Seconds (9.4-12.1) 03/15/17 05:53 - Attending Attestation I have personally performed a face to face evaluation on this patient. I have reviewed and agree with the care plan. History and Exam by me revealed a patient with chronic hepatitis C and HIV by history. Mild splenomegaly. : Agree with outpatient EUS
--- NOTE | 2017-03-15 11:59 | Electrocardiograph Report ---
[place] [facility] Test Date: 2017-03-14 Pat Name: Yung Vargas Department: 102 Room: 3A55 Gender: M [employer] Instructor: Msc : 1970 Requested By: Benjamin Borrego Order Number: [id number] Reading MD: Manuelito Elena MD Measurements Intervals [place] Rate: 61 P: 33 SC: 154 QRS: 74 QRSD: 96 T: 66 QT: 398 QTc: 401 Interpretive Statements SINUS RHYTHM WITH SINUS ARRHYTHMIA ST ELEVATION, PROBABLY EARLY REPOLARIZATION [ST ELEVATION WITH NORMALLY INFLECTED T WAVE], present 08/2013 Electronically Signed On 03-15-2017 11:57:38 EST by Manuelito Elena MD
[2017-03-15] MEDS: Thiamine (B-1) 100 MG, Folic Acid 1 MG, MVI, adult with vitamin K 10 ML in 0.9 % Sodi... IVPB SCH (22:49)
[2017-03-16] MEDS: Meropenem 1,000 MG in Water for inj. (sterile) 20 ML 10 ML IVP SCH (01:00)
[2017-03-16] MEDS: D5% in 0.45% NACL 1,000 ML IVC SCH ×2 (01:01→11:44)
[2017-03-16] MEDS: *HR* HYDROmorphone (PF) 1 MG/ML SYRINGE IVP PRN ×3 (04:59→13:21)
[2017-03-16] MEDS: Ondansetron 4 MG/2 ML VIAL IVP PRN ×2 (04:59→17:38)
[2017-03-16] MEDS: *HR* Heparin 5,000 UNIT/ML VIAL SQ SCH ×2 (05:11→17:47)
[2017-03-16] MEDS: Pantoprazole 40 MG VIAL IVP SCH (05:11)
[2017-03-16 05:56] LABS: Basophils # 0.1 K/mcL (0.0-0.2); Basophils % 0.6 %; Eosinophils # 0.4 K/mcL (0.0-0.6); Eosinophils % 3.3 %; Hematocrit 34.9 % (37.5-50.1); Hemoglobin 11.4 g/dL (12.9-16.9); Immature Granulocytes % 0.3 % (0-4); Lymphocytes % 25.2 %; Mean Corpuscular HGB Conc 32.7 g/dL (31.6-35.5); Mean Corpuscular Hemoglobin 28.1 pg (28.0-33.3); Mean Platelet Volume 11.5 fL (9.4-12.4); Monocytes # 0.8 K/mcL (0.0-1.3); Monocytes % 6.6 %; Neutrophils # 7.5 K/mcL (1.6-8.9); Platelet Count 174 K/mcL (140-400); Red Blood Count 4.06 M/mcL (4.19-5.50); Red Cell Distribution Width 15.1 % (11.5-14.5)
[2017-03-16 06:28] LABS: Alanine Aminotransferase 5 Units/L (7-52); Albumin 3.6 g/dL (3.5-5.7); Albumin/Globulin Ratio 1.4 (1.1-2.2); Alkaline Phosphatase 67 Units/L (34-104); Aspartate Amino Transferase 12 Units/L (13-39); BUN/Creatinine Ratio 6 (6-26); Bilirubin,Total 0.6 mg/dL (0.3-1.0); Blood Urea Nitrogen 4 mg/dL (6-20); Calcium 8.5 mg/dL (8.6-10.3); Carbon Dioxide 23 mEq/L (23-29); Chloride 103 mEq/L (98-107); Globulin 2.5 g/dL (2.4-3.5); Glucose 91 mg/dL (70-105); Lipase 464 Units/L (11-82); Osmolality,Calculated 278 (280-300); Potassium 3.6 mEq/L (3.5-5.1); Sodium 136 mEq/L (136-145); Total Protein 6.1 g/dL (6.4-8.9); eGFR For African Americans > 60 (> 60); eGFR For Non-African Americans > 60 (> 60)
--- NOTE | 2017-03-16 08:37 | Internal Med Progress Note ---
Date of Encounter: 03/16/17 Time of Encounter: 08:28 - Assessment and plan (1) Acute pancreatitis Current Visit: No Status: Acute Assessment and plan: Appears to be slowly improving. Continues to have significant pain. Continue same pain med regimen for now. Qualifiers: Pancreatitis type: alcohol induced Acute pancreatitis complication: no infection or necrosis Qualified Code(s): K85.20 - Alcohol induced acute pancreatitis without necrosis or infection (2) Pseudocyst of pancreas Current Visit: Yes Status: Chronic Assessment and plan: Previously seen on MRI on 02.28.17. Stable from previous CT image. 1.3cm located in head of pancreas Has follow up arranged with GI later in month (3) Alcohol abuse Current Visit: No Status: Chronic Assessment and plan: Patient reports being sober for one year now, though states she caught him drinking recently Patient was in rehab for drinking within the last year - Continue [facility] protocol - MVI - Thiamine - Folate - IVF - Counseled and encouraged cessation with h/o admissions for pancreatitis from EtOH abuse At this point he does not appear to be acutely withdrawaling (4) Tobacco abuse Current Visit: No Status: Chronic Assessment and plan: Cessation counselling. - Subjective Interval history: Mr Vargas is currently admitted for acute pancreatitis in the setting of chronic pancreatitis with pseudocyst. He is still experiencing significant pain. He remains moderate to high risk due to potential for worsening clinical status and need for IV pain medications. Mr Vargas is still having a lot of discomfort. He has had nausea and dry heaves at times. No fever or chills. No diarrhea. Feels very thirsty and hungry. at bedside and says he had a rough night. - Constitutional Vitals: Temp Pulse Resp BP Pulse Ox 98.2 F 67 18 132/72 99 03/16/17 07:44 03/16/17 07:44 03/16/17 07:44 03/16/17 07:44 03/16/17 07:44 General appearance: Present: cooperative, mild distress (due to abdominal pain) , A&O X 3, pleasant, answers questions appropriately - Head Head exam: Present: atraumatic, normocephalic - Eye Eye exam: Present: EOMI, conjuntiva pink - ENT ENT exam: Present: mucous membranes dry - Respiratory Respiratory exam: Present: CTAB. Absent: rales, rhonchi, wheezes - Cardiovascular Cardiovascular exam: Present: RRR, systolic murmur - GI/Abdominal GI/Abdominal exam: Present: diminished bowel sounds, guarding, soft, tenderness. Absent: mass, rebound, rigid, no peritoneal signs Additional comments: Diffusely tender especially in epigastric region. Voluntary guarding. No peritoneal signs. - Extremities Exam Extremities exam: Present: warm. Absent: tenderness - Neurological Exam Neurological exam: Present: alert, oriented X3, no focal deficits - Skin Skin exam: Present: dry, warm. Absent: rash Internal Medicine: Result - Labs CBC & Chem 7: 03/16/17 05:28 03/16/17 05:28 Labs: Short CBC 03/16/17 Range/Units 05:28 WBC 11.8 H (4.3-11.1) K/mcL Hgb 11.4 L (12.9-16.9) g/dL Hct 34.9 L (37.5-50.1) % Plt Count 174 (140-400) K/mcL Neutrophils # 7.5 (1.6-8.9) K/mcL BMP 03/15/17 03/16/17 05:53 05:28 Sodium 140 136 Potassium 3.8 3.6 Chloride 109 H 103 Carbon Dioxide 21 L 23 BUN 5 L 4 L Creatinine 0.74 0.67 L Glucose 70 91 Calcium 8.4 L 8.5 L Liver Function 03/15/17 03/16/17 Range/Units 05:53 05:28 Total Bilirubin 0.6 0.6 (0.3-1.0) mg/dL AST 11 L 12 L (13-39) Units/L ALT 5 L 5 L (7-52) Units/L Alkaline Phosphatase 68 67 (34-104) Units/L Albumin 3.4 L 3.6 (3.5-5.7) g/dL - ABG Interpretation ABG results: PT/INR, D-dimer PT 12.0 Seconds (9.4-12.1) 03/15/17 05:53 Consult Discharge Plan - Plan Referrals: Anel Ronquillo, JENNIFER [Primary Care Provider] -
[2017-03-16] MEDS: Gabapentin 100 MG CAPSULE PO SCH ×3 (09:27→21:59)
[2017-03-16] MEDS: 0.9 % Sodium Chloride 1,000 ML IVC SCH (09:32)
[2017-03-16] MEDS: MetroNIDAZOLE 500 MG/100 ML 500 MG/100 ML BAG IVPB SCH ×3 (11:43→23:34)
[2017-03-16] MEDS: *HR* Morphine 2 MG/ML SYRINGE IVP PRN ×2 (17:47→21:58)
[2017-03-16] MEDS: Thiamine (B-1) 100 MG, Folic Acid 1 MG, MVI, adult with vitamin K 10 ML in 0.9 % Sodi... IVPB SCH (18:47)
[2017-03-17] MEDS: 0.9 % Sodium Chloride 1,000 ML IVC SCH ×2 (01:26→23:58)
[2017-03-17] MEDS: *HR* HYDROmorphone (PF) 1 MG/ML SYRINGE IVP PRN ×5 (04:36→22:32)
[2017-03-17] MEDS: Ondansetron 4 MG/2 ML VIAL IVP PRN (04:42)
[2017-03-17] MEDS: MetroNIDAZOLE 500 MG/100 ML 500 MG/100 ML BAG IVPB SCH ×4 (06:04→23:56)
[2017-03-17] MEDS: *HR* Heparin 5,000 UNIT/ML VIAL SQ SCH ×2 (06:04→17:42)
[2017-03-17 06:55] LABS: VBG Ionized Calcium 1.13 mmol/L (1.15-1.35); VBG PH 7.36 pH Units (7.32-7.42)
[2017-03-17 07:08] LABS: Alanine Aminotransferase 5 Units/L (7-52); Albumin 3.2 g/dL (3.5-5.7); Albumin/Globulin Ratio 1.3 (1.1-2.2); Alkaline Phosphatase 60 Units/L (34-104); Aspartate Amino Transferase 14 Units/L (13-39); BUN/Creatinine Ratio 3 (6-26); Bilirubin,Total 0.4 mg/dL (0.3-1.0); Blood Urea Nitrogen 2 mg/dL (6-20); Calcium 8.3 mg/dL (8.6-10.3); Carbon Dioxide 27 mEq/L (23-29); Chloride 105 mEq/L (98-107); Globulin 2.4 g/dL (2.4-3.5); Glucose 122 mg/dL (70-105); Lipase 331 Units/L (11-82); Magnesium 1.6 mg/dL (1.6-2.6); Osmolality,Calculated 283 (280-300); Potassium 3.4 mEq/L (3.5-5.1); Sodium 138 mEq/L (136-145); Total Protein 5.6 g/dL (6.4-8.9); eGFR For African Americans > 60 (> 60); eGFR For Non-African Americans > 60 (> 60)
[2017-03-17 07:18] LABS: Hematocrit 33.3 % (37.5-50.1); Hemoglobin 10.7 g/dL (12.9-16.9); Mean Corpuscular HGB Conc 32.1 g/dL (31.6-35.5); Mean Corpuscular Hemoglobin 27.7 pg (28.0-33.3); Mean Corpuscular Volume 86.3 fL (83.0-100.0); Mean Platelet Volume 11.5 fL (9.4-12.4); Platelet Count 166 K/mcL (140-400); Red Blood Count 3.86 M/mcL (4.19-5.50)
[2017-03-17] MEDS: Gabapentin 100 MG CAPSULE PO SCH ×3 (07:51→19:58)
[2017-03-17] MEDS ORDERED: Calcium Gluconate 2,000 MG in D5% in Water 100 ML IVPB ONE (08:28)
--- NOTE | 2017-03-17 09:19 | Internal Med Progress Note ---
Date of Encounter: 03/17/17 Time of Encounter: 08:55 - Assessment and plan (1) Acute pancreatitis Current Visit: No Status: Acute Assessment and plan: Lipase still somewhat elevated but clinically improving Will start clear liquid diet today and advance to soft as he tolerates. Hopefully will continue to improve and be ready for discharge in next 24 - 48 hours. Qualifiers: Pancreatitis type: alcohol induced Acute pancreatitis complication: no infection or necrosis Qualified Code(s): K85.20 - Alcohol induced acute pancreatitis without necrosis or infection (2) Pseudocyst of pancreas Current Visit: Yes Status: Chronic Assessment and plan: Previously seen on MRI on 02.28.17. Stable from previous CT image. 1.3cm located in head of pancreas Has follow up arranged with GI later in month (3) Hypokalemia Current Visit: Yes Status: Acute Assessment and plan: Replace today (4) Hypertension Current Visit: Yes Status: Chronic Assessment and plan: Restart PO meds today. Qualifiers: Hypertension type: essential hypertension Qualified Code(s): I10 - Essential (primary) hypertension (5) Hypocalcemia Current Visit: Yes Status: Acute Assessment and plan: Replace today (6) Alcohol abuse Current Visit: No Status: Chronic Assessment and plan: Patient reports being sober for one year now, though states she caught him drinking recently Patient was in rehab for drinking within the last year - Continue [facility] protocol - MVI - Thiamine - Folate - IVF - Counseled and encouraged cessation with h/o admissions for pancreatitis from EtOH abuse At this point he does not appear to be acutely withdrawaling 03/17 - clinically no withdrawal. Continue [facility] (7) Tobacco abuse Current Visit: No Status: Chronic Assessment and plan: Cessation counselling. - Subjective Interval history: Mr Vargas is currently admitted for acute pancreatitis in the setting of chronic pancreatitis with pseudocyst. He is still experiencing significant pain. He remains moderate to high risk due to potential for worsening clinical status and need for IV pain medications. Mr Vargas is feeling very hungry this AM. Pain in abdomen is about the same. No fever or chills. Tolerating ice chips and water. No nausea or vomiting now. No diarrhea. Ready to try some more PO intake. - Constitutional Vitals: Temp Pulse Resp BP Pulse Ox 98.0 F 64 18 149/83 99 03/17/17 07:05 03/17/17 07:05 03/17/17 07:05 03/17/17 07:05 03/17/17 07:05 General appearance: Present: cooperative, A&O X 3, pleasant, answers questions appropriately - Head Head exam: Present: atraumatic, normocephalic - Eye Eye exam: Present: EOMI, conjuntiva pink - ENT ENT exam: Present: mucous membranes dry - Respiratory Respiratory exam: Present: CTAB. Absent: rales, rhonchi, wheezes - Cardiovascular Cardiovascular exam: Present: RRR, systolic murmur. Absent: tachycardia - GI/Abdominal GI/Abdominal exam: Present: diminished bowel sounds, soft, tenderness - Extremities Exam Extremities exam: Present: warm. Absent: tenderness - Neurological Exam Neurological exam: Present: alert, oriented X3, no focal deficits - Skin Skin exam: Present: dry, warm. Absent: rash Internal Medicine: Result - Labs CBC & Chem 7: 03/17/17 06:41 03/17/17 06:41 Labs: Short CBC 03/17/17 Range/Units 06:41 WBC 9.0 (4.3-11.1) K/mcL Hgb 10.7 L (12.9-16.9) g/dL Hct 33.3 L (37.5-50.1) % Plt Count 166 (140-400) K/mcL BMP 03/17/17 06:41 Sodium 138 Potassium 3.4 L Chloride 105 Carbon Dioxide 27 BUN 2 L Creatinine 0.66 L Glucose 122 H Calcium 8.3 L Liver Function 03/17/17 Range/Units 06:41 Total Bilirubin 0.4 (0.3-1.0) mg/dL AST 14 (13-39) Units/L ALT 5 L (7-52) Units/L Alkaline Phosphatase 60 (34-104) Units/L Albumin 3.2 L (3.5-5.7) g/dL - ABG Interpretation ABG results: PT/INR, D-dimer PT 12.0 Seconds (9.4-12.1) 03/15/17 05:53 Consult Discharge Plan - Plan Referrals: Anel Ronquillo, [employer] [Primary Care Provider] -
[2017-03-17] MEDS ORDERED: Potassium Chloride 20 MEQ, Lidocaine 1% 2 ML in D5% in Water 250 ML IVPB ONE (09:24)
[2017-03-17] MEDS: Thiamine (B-1) 100 MG TABLET PO SCH (10:39)
[2017-03-17] MEDS: Folic Acid 1 MG TABLET PO SCH (10:57)
[2017-03-18] MEDS: *HR* HYDROmorphone (PF) 1 MG/ML SYRINGE IVP PRN (03:31)
[2017-03-18 03:48] VITALS: BP 154/88
[2017-03-18] MEDS: *HR* Heparin 5,000 UNIT/ML VIAL SQ SCH (05:59)
[2017-03-18] MEDS: MetroNIDAZOLE 500 MG/100 ML 500 MG/100 ML BAG IVPB SCH (05:59)
[2017-03-18] MEDS: 0.9 % Sodium Chloride 1,000 ML IVC SCH (07:53)
[2017-03-18] MEDS ORDERED: *HR* HYDROcodone/Acet 7.5/325 mg TABLET PO PRN (08:21)
--- NOTE | 2017-03-18 08:24 | Discharge Summary ---
<YovanyRoque - Last Filed: 03/18/17 15:03> Date of Encounter: 03/18/17 Time of Encounter: 08:22 - Discharge Diagnosis (1) Acute on chronic pancreatitis Priority: Primary Status: Acute (2) Pseudocyst of pancreas Priority: Secondary Status: Chronic (3) Abdominal pain Priority: Primary Status: Acute Qualifiers: Abdominal location: epigastric Qualified Code(s): R10.13 - Epigastric pain (4) Leukocytosis Priority: Secondary Status: Acute Qualifiers: Leukocytosis type: unspecified Qualified Code(s): D72.829 - Elevated white blood cell count, unspecified (5) Alcohol abuse Priority: Secondary Status: Chronic (6) Hypertension Priority: Secondary Status: Chronic Qualifiers: Hypertension type: essential hypertension Qualified Code(s): I10 - Essential (primary) hypertension (7) Hyperlipidemia Priority: Secondary Status: Chronic Qualifiers: Hyperlipidemia type: unspecified Qualified Code(s): E78.5 - Hyperlipidemia , unspecified (8) DVT prophylaxis Priority: Secondary Status: Acute - Discharge Medications Prescriptions: HYDROcodone/Acet 7.5/325 mg [Grove 7.5-325 mg] 1 tab PO Q6HR PRN 5 Days #20 tablet PRN Reason: Pain Ondansetron HCl 4 mg PO Q8H 5 Days #15 tablet Home Medications: Lisinopril [Zestril] 10 mg PO DAILY 08/01/15 [History] Folic Acid 1 mg PO DAILY 05/16/16 [History] Propranolol HCl 40 mg PO DAILY 05/16/16 [History] Atorvastatin Calcium [Lipitor] 20 mg PO HS 03/14/17 [History] Gabapentin [Neurontin] 100 mg PO TID 03/14/17 [History] Omeprazole [PriLOSEC] 40 mg PO DAILY 03/14/17 [History] HYDROcodone/Acet 7.5/325 mg [Grove 7.5-325 mg] 1 tab PO Q6HR PRN 5 Days #20 tablet 03/18/17 [Rx] Ondansetron HCl 4 mg PO Q8H 5 Days #15 tablet 03/18/17 [Rx] Allergies/Adverse Reactions: 3 Allergy/AdvReac Type Severity Reaction Status Date / Time No Known Allergies Allergy Verified 05/16/16 18:14 Date of admission: 03/14/17 12:00 Primary care physician: Anel Ronquillo Consults: 03/14/17 13:11 Consult to Physician [CONS] Routine Consulting Provider: William Noble Reason for Consult: pancreatitis; pseudocyst Time Notified: 13:11 Call Completed: Yes Discharging clinician: Jasbir Colmenares Anticipated date of discharge: 03/18/17 - Patient Status Disposition: Home, Self-Care Condition: Good Functional capacity at discharge: independent ambulation Overall status at discharge: patient is back to baseline - Discharge Instructions Instructions: Pancreatitis (DC) Follow Up With: Anel Ronquillo, [employer] [Primary Care Provider] - Additional Instructions: Continue to take all medications as prescribed Followup with PCP within 7 days Keep follow-up with Dr. Noble on 03/27/17 May use Grove 7.5 every 6 hours for the next 5 days, do not drive or consume alcohol while taking this medication. Advance your diet as tolerated but eat low fat diet Please call your PCP or return to the office/ED if you start experiencing fevers , chills, consistent nausea or vomiting, worsening abdominal pain, chest pain or palpitations. - Diet and Activity Activity: increase activity as tolerated Diet: low fat, low cholesterol Hospital course: Mr. Vargas is a 46 year old male with a past medical history of HTN, HLD and EtOH abuse who presents to the ER on 03/14/17 with acute onset of epigastric abdominal pain, protracted nausea, and protracted vomiting since yesterday. He admits to having some subjective fevers and chills but no night sweats. He denies any diarrhea. He denies any GI blood loss. He feels as though he has pancreatitis again. He first had pancreatitis about a year and half ago secondary to excessive alcohol intake. He has since then quit drinking alcohol and reports sobriety for the past year. The only exception is he had a couple drinks the night before last ([employer]ade). His pancreatitis symptoms started shortly there after prompting him to come in this morning. Workup in the ER revealed lipase 665 -> 1054. WBC 12.4 ->15.0. Started on Meropenem. He was then admitted to the hospitalist service for further management. Patient did have an MRI of his pancreas roughly 2 weeks ago confirming mild pancreatitis as well as a stable pseudocyst roughly 1.3 cm in size. He follows with Dr. Noble for his pancreatitis. He denies any peptic ulcer disease or any known gallstones. Patient was started on IV fluids, pain control and bowel rest. GI was consulted during his stay and recommended followup with Dr. Noble on 03/27/17 for possible EUS. Transitioned to Cipro and Flagyl. WBC dropped to 9.0. Pain improved over the weekend as well as toleration of his diet. Lipase trended down to 331. He will receive 5 days of Grove 7.5. Mr. Vargas was discharged home in stable condition on 03/18/16 with adequate followup in place. All questions and concerns were answered. - Time Spent with Patient Total time spent providing and/or coordinating discharge services: - Constitutional Vitals: Temp Pulse Resp BP Pulse Ox 98.1 F 69 17 154/88 98 03/18/17 03:47 03/18/17 03:47 03/18/17 03:47 03/18/17 03:47 03/18/17 03:47 General appearance: Present: cooperative, A&O X 3, pleasant, answers questions appropriately - Head Head exam: Present: atraumatic, normocephalic - Eye Eye exam: Present: EOMI, normal appearance, conjuntiva pink, sclera anicteric - ENT ENT exam: Present: mucous membranes moist - Neck Neck exam general surgery: Present: supple, trachea midline - Respiratory Respiratory exam: Present: CTAB. Absent: respiratory distress - Cardiovascular Cardiovascular exam: Present: RRR, +S1, +S2 - GI/Abdominal GI/Abdominal exam: Present: normal bowel sounds, soft. Absent: tenderness - Extremities Exam Extremities exam: Present: warm. Absent: pedal edema, tenderness - Neurological Exam Neurological exam: Present: alert, oriented X3, no focal deficits - Psychiatric Psychiatric exam: Present: normal affect, normal mood - Skin Skin exam: Present: dry, normal color, warm. Absent: diaphoretic <Jasbir Colmenares - Last Filed: 03/18/17 18:47> Date of Encounter: 03/18/17 - Discharge Diagnosis (1) Acute pancreatitis Status: Resolved Qualifiers: Pancreatitis type: alcohol induced Acute pancreatitis complication: no infection or necrosis Qualified Code(s): K85.20 - Alcohol induced acute pancreatitis without necrosis or infection (2) Pseudocyst of pancreas Status: Chronic (3) Hypokalemia Priority: Secondary Status: Resolved (4) Hypertension Status: Chronic Qualifiers: Hypertension type: essential hypertension Qualified Code(s): I10 - Essential (primary) hypertension (5) Hypocalcemia Priority: Secondary Status: Resolved (6) Alcohol abuse Status: Chronic (7) Tobacco abuse Priority: Secondary Status: Chronic Date of admission: 03/14/17 12:00 Primary care physician: Anel Ronquillo Consults: 03/14/17 13:11 Consult to Physician [CONS] Routine Consulting Provider: William Noble Reason for Consult: pancreatitis; pseudocyst Time Notified: 13:11 Call Completed: Yes Hospital course: Mr. Vargas is a 46 year old male - Time Spent with Patient Total time spent providing and/or coordinating discharge services: - Constitutional Vitals: Temp Pulse Resp BP Pulse Ox 98.1 F 69 17 154/88 98 03/18/17 03:47 03/18/17 03:47 03/18/17 03:47 03/18/17 03:47 03/18/17 03:47 - Attending Attestation I examined this patient and my medical decision-making was reviewed with the Resident Physician on 03/18/17. I agree with the documented findings, disposition and treatment plan as described except to the extent set forth below. Mr Vargas has been admitted with acute on chronic pancreatitis. He has slowly improved and now is tolerating PO diet. He is afebrile with stable vitals and ready for discharge home. Exam alert. Comfortable Mucus membranes moist Heart not tachy Lungs no wheeze Abd improving Plan D/C home today.
[2017-03-18] MEDS: Thiamine (B-1) 100 MG TABLET PO SCH (08:59)
[2017-03-18] MEDS: Folic Acid 1 MG TABLET PO SCH (09:00)
[2017-03-18] MEDS: Gabapentin 100 MG CAPSULE PO SCH (09:00)
== END 2017-03-18 10:07 | disposition home or self-care (01) | DRG 282 ==
LOC: EMEROO 07:51 → 3BNU 12:00 → SUATTDRO 12:00 → 3ANU 13:48
PROVIDERS: ADMIT Pediatrics; ATTEND Internal Medicine